=== PATIENT | female | born 1950 | race Caucasian/White ===

== ENCOUNTER → 2017-10-18 03:11 | Outpatient (CLI) | payer MEDICARE, SELFPAY ==
[2017-10-18 11:50] LABS: Abs Immature Grans 0.01 k/cumm (0.0-0.09); Absolute Basophil Count 0.03 k/cumm (0.0-0.2); Absolute Eosinophil Count 0.14 k/cumm (0.0-0.7); Absolute Lymphocyte Count 2.06 k/cumm (1.2-3.4); Absolute Neutrophil Count 4.08 k/cumm (1.2-6.7); Basophils % 0.4; HCT 43.4 % (36.0-46.0); HGB 15.2 g/dL (12.0-15.5); Immature Grans % 0.1; Lymphocytes % 29.3; Mean Corpuscular Hemoglobin 35.7 pg (27.0-33.0); Mean Corpuscular Volume 101.9 fL (80-95); Mean Platelet Volume 9.6 fL (8.0-11.0); Neutrophils % 58.2; Platelet Count 273 x1000/uL (130-400); RBC 4.26 m/cumm (4.00-5.20); RBC Distribution Width 13.1 % (11.7-14.6); White Blood Cell Count 7.02 k/cumm (4.4-10.8)
[2017-10-18 12:01] LABS: ALT 31 U/L (12-78); AST 17 U/L (15-37); Albumin 3.7 g/dL (3.4-5.0); Alkaline Phosphatase 85 U/L (46-116); Anion Gap 6.6 mmol/L (3-11); BUN 19 mg/dL (7-18); Bilirubin, Total 0.5 mg/dL (0.2-1.0); CO2 30.4 mmol/L (21.0-32.0); CREATININE 0.93 mg/dL (0.55-1.02); Calcium 9.1 mg/dL (8.5-10.1); Chloride 104 mmol/L (98-107); Glucose 104 mg/dL (70-100); LDH 187 U/L (81-234); Potassium 3.6 mmol/L (3.5-5.1); Sodium 141 mmol/L (136-145); Total Protein 6.9 g/dL (6.4-8.2)
== END ==
PROVIDERS: Visit Provider Internal Medicine Hematology & Oncology
DX: C85.80 Other specified types of non-Hodgkin lymphoma, unspecified site (principal)
CPT/HCPCS: 36415; 80053; 83615; 85025

== ENCOUNTER 2018-09-05 10:18 | Outpatient (REF) | payer MEDICARE, SELFPAY ==
[2018-09-05 13:40] LABS: HCT 45.8 % (36.0-46.0); HGB 15.8 g/dL (12.0-15.5); Mean Corp. HGB Concentration 34.5 g/dL (32.0-36.0); Mean Corpuscular Volume 101.3 fL (80-95); Mean Platelet Volume 10.1 fL (8.0-11.0); Platelet Count 288 x1000/uL (130-400); RBC 4.52 m/cumm (4.00-5.20); RBC Distribution Width 13.5 % (11.7-14.6)
[2018-09-05 14:24] LABS: BUN 19 mg/dL (7-18); CREATININE 0.89 mg/dL (0.55-1.02); Calcium 8.9 mg/dL (8.5-10.1); Chloride 103 mmol/L (98-107); Glucose 150 mg/dL (70-100); Magnesium 1.7 mg/dL (1.8-2.4); Potassium 4.2 mmol/L (3.5-5.1); Sodium 142 mmol/L (136-145); Vitamin B12 491 pg/mL (193-986)
== END 2018-09-05 10:38 ==
LOC: NCHCN 10:18
PROVIDERS: PCP Nurse Practitioner Family; Visit Provider Nurse Practitioner Family
DX: K21.9 Gastro-esophageal reflux disease without esophagitis (principal); M79.10 Myalgia, unspecified site; C85.90 Non-Hodgkin lymphoma, unspecified, unspecified site
CPT/HCPCS: 80048; 85027; 82607; 83735

== ENCOUNTER 2018-09-18 00:48 | Outpatient (CLI) | payer MEDICARE, SELFPAY ==
--- NOTE | 2018-09-18 11:11 | DI.MAMMO_ITS ---
SYMPTOM/DIAGNOSIS: SCREENING, Z12.31 MAMMOGRAMS: Mammograms were interpreted according to the usual protocol including computer analysis with CAD system, tomosynthesis and C view imaging. Comparison is with the prior examinations. No suspicious masses or microcalcifications are seen. There is no definite evidence of malignancy. IMPRESSION: Negative mammogram. Routine screening is recommended. Category 1, breast density A. MQSA ASSESSMENT OF FINDINGS: Negative. Category 1. Patient will receive a letter notifying them of these results. BI-RAD category A. The breasts are almost entirely fatty.
== END 2018-09-18 01:08 ==
PROVIDERS: PCP Nurse Practitioner Family; Visit Provider Nurse Practitioner Family
DX: Z12.31 Encounter for screening mammogram for malignant neoplasm of breast (principal)
CPT/HCPCS: 77063; 77067

== ENCOUNTER 2018-09-26 10:52 | Outpatient (CLI) | payer MEDICARE, SELFPAY ==
--- NOTE | 2018-09-26 10:47 | DI.RAD_ITS ---
SYMPTOM/DIAGNOSIS: RT KNEE PAIN RIGHT KNEE: There is severe narrowing of the medial femoral tibial joint, with a bone on bone appearance. There is some lateral subluxation of the tibia with respect to the femur. There is prominent periarticular spurring of both medial and lateral femoral tibial joints as well as patellofemoral joint. IMPRESSION: Severe degenerative changes of the medial femoral tibial joint and patellofemoral joint.
== END 2018-09-26 11:12 ==
PROVIDERS: PCP Nurse Practitioner Family; Referring Provider Nurse Practitioner Family; Visit Provider Student in an Organized Health Care Education/Training Program
DX: M25.561 Pain in right knee (principal); M17.11 Unilateral primary osteoarthritis, right knee; Z85.79 Personal history of other malignant neoplasms of lymphoid, hematopoietic and related tissues; M70.62 Trochanteric bursitis, left hip; E11.9 Type 2 diabetes mellitus without complications
CPT/HCPCS: 20610; 73562; 99202; 99203; J1040

== ENCOUNTER → 2018-11-08 10:16 | Outpatient (BNVA) | payer MEDICARE, SELFPAY | PROVIDERS: PCP Nurse Practitioner Family; Referring Provider Nurse Practitioner Family; Visit Provider Student in an Organized Health Care Education/Training Program | DX: M25.561 Pain in right knee (principal); M17.11 Unilateral primary osteoarthritis, right knee; Z98.890 Other specified postprocedural states | CPT/HCPCS: 99213 ==

== ENCOUNTER 2019-03-11 09:54 | Outpatient (REF) | payer MEDICARE, SELFPAY ==
[2019-03-11 13:48] LABS: ALT 24 U/L (14-59); AST 11 U/L (15-37); Anion Gap 8.6 mmol/L (3-11); BUN 20 mg/dL (7-18); CO2 30.4 mmol/L (21.0-32.0); CREATININE 0.88 mg/dL (0.55-1.02); Calcium 9.1 mg/dL (8.5-10.1); Calculated LDL 64 mg/dL; Chloride 105 mmol/L (98-107); Cholesterol 124 mg/dL (<200); Glucose 202 mg/dL (74-106); HDL Cholesterol 44 mg/dL (40-60); Magnesium 1.7 mg/dL (1.8-2.4); Potassium 4.8 mmol/L (3.5-5.1); Sodium 144 mmol/L (136-145); Triglyceride 84 mg/dL (<150)
== END 2019-03-11 10:14 ==
LOC: NCHCN 09:54
PROVIDERS: PCP Nurse Practitioner Family; Visit Provider Nurse Practitioner Family
DX: E11.9 Type 2 diabetes mellitus without complications (principal); E83.42 Hypomagnesemia
CPT/HCPCS: 80048; 80061; 83735; 84450; 84460

== ENCOUNTER → 2019-03-11 10:00 | Outpatient (BNVA) | payer MEDICARE, SELFPAY | PROVIDERS: PCP Nurse Practitioner Family; Referring Provider Nurse Practitioner Family; Visit Provider Student in an Organized Health Care Education/Training Program | DX: M17.11 Unilateral primary osteoarthritis, right knee (principal); I10 Essential (primary) hypertension | CPT/HCPCS: 20610; 99213; J7318 ==

== ENCOUNTER 2019-04-26 10:48 | Outpatient (CLI) | payer MEDICARE, SELFPAY ==
--- NOTE | 2019-04-26 10:30 | DI.RAD_ITS ---
EXAM: XR STANDING ALIGNMENT INDICATION: R knee OA. COMPARISON: No exams were available for comparison TECHNIQUE: 2D digital imaging was performed. FINDINGS: The exam is limited by the patient's body habitus. The hip joint spaces are not well seen. The left femoral head projects superior to the right by 8 millimeters. There are severe degenerative changes of both knees, right greater than left. There is narrowing of both ankle joints. Bilateral varus an gulation. IMPRESSION: Severe degenerative change of the knees, right greater than left. Mild leg length discrepancy. DATA REPOSITORY: RADIATION DOSE DELIVERED:
== END 2019-04-26 11:08 ==
PROVIDERS: PCP Nurse Practitioner Family; Referring Provider Nurse Practitioner Family; Visit Provider Student in an Organized Health Care Education/Training Program
DX: M17.12 Unilateral primary osteoarthritis, left knee (principal); M21.70 Unequal limb length (acquired), unspecified site; M17.11 Unilateral primary osteoarthritis, right knee; Z98.890 Other specified postprocedural states
CPT/HCPCS: 99213; 77073

== ENCOUNTER 2019-07-19 01:55 | Outpatient (CLI) | payer MEDICARE, SELFPAY ==
[2019-07-19 13:02] LABS: HCT 44.7 % (36.0-46.0); HGB 14.9 g/dL (12.0-15.5); Mean Corp. HGB Concentration 33.3 g/dL (32.0-36.0); Mean Corpuscular Hemoglobin 34.7 pg (27.0-33.0); Mean Platelet Volume 9.5 fL (8.0-11.0); Platelet Count 331 x1000/uL (130-400); RBC Distribution Width 13.2 % (11.7-14.6); White Blood Cell Count 7.48 k/cumm (4.4-10.8)
[2019-07-19 13:44] LABS: Hemoglobin A1C 6.3 % (3.8-5.6)
[2019-07-19 13:45] LABS: Anion Gap 8.7 mmol/L (3-11); BUN 18 mg/dL (7-18); CO2 28.3 mmol/L (21.0-32.0); CREATININE 0.93 mg/dL (0.55-1.02); Calcium 9.4 mg/dL (8.5-10.1); Chloride 104 mmol/L (98-107); Estimated GFR 59.78 (mL/min/1.73m2); Glucose 93 mg/dL (74-106); Sodium 141 mmol/L (136-145)
[2019-07-20 23:54] LABS: COVID-19 RT-PCR Result NEGATIVE (Negative)
== END 2019-07-19 02:15 ==
PROVIDERS: PCP Nurse Practitioner Family; Visit Provider Student in an Organized Health Care Education/Training Program
DX: M25.561 Pain in right knee (principal); M17.11 Unilateral primary osteoarthritis, right knee; R73.9 Hyperglycemia, unspecified; Z11.59 Encounter for screening for other viral diseases; Z01.818 Encounter for other preprocedural examination; Z01.812 Encounter for preprocedural laboratory examination
CPT/HCPCS: 36415; 80048; 85027; U0003; 83036

== ENCOUNTER 2019-07-19 08:48 | Outpatient (CLI) | payer MEDICARE, SELFPAY | END 2019-07-19 09:08 | PROVIDERS: PCP Nurse Practitioner Family; Visit Provider Student in an Organized Health Care Education/Training Program | DX: M17.11 Unilateral primary osteoarthritis, right knee (principal); Z01.818 Encounter for other preprocedural examination ==

== ENCOUNTER 2019-07-24 06:02 | Observation (INO) | payer MEDICARE, SELFPAY ==
[2019-07-24] VITALS (11 sets, daily range): BP systolic 94–155; BP diastolic 36–90; PULSE 58–70; RESP 8–22; TEMP 35.9–36.7; O2SAT 93–98
[2019-07-24] MEDS: Lactated Ringers 1,000 ML 80 ML IV (06:55)
[2019-07-24] MEDS: Gabapentin 300 MG CAP PO (07:07)
[2019-07-24] MEDS: Acetaminophen 500 MG TAB 1000 MG PO ×2 (07:07→13:41)
[2019-07-24] MEDS: Celecoxib 200 MG CAP 400 MG PO (07:08)
[2019-07-24] MEDS: ceFAZolin 3,000 MG in Normal Saline 100 ML 200 MG IVPB (07:40)
[2019-07-24] MEDS: Normal Saline 20 ML VIAL (08:13)
[2019-07-24] MEDS: Bupivacaine 0.25% Pres-Free 30 ML VIAL (08:13)
[2019-07-24] MEDS: Ketorolac 30 MG/ML VIAL (08:13)
--- NOTE | 2019-07-24 10:57 | IN_ITS ---
Date of service: 07/24/19 PT Notes Visit Reasons: (R) KNEE TOTAL Physical Therapy Inpatient Initial Evaluation Date: 07/24/2019 Referring Doctor: Patricio Eldridge MD PT Orders: PT CONSULT: Status post Ortho surgery. Status post right TKA Precautions: Fall. Standard. WBAT on R LE. Patient Profile/Admitting Diagnosis: Mary Ann is a 68-year-old female patient with degenerative joint disease of the right knee status post right total knee arthroplasty on postoperative day 0. PMHX: Medical History Anxiety (Active) Benign hypertension (Active) Cholelithiasis without obstruction (Active) Diabetes (Chronic) Febrile neutropenia (Active 07/21/12) History of lymphoma (Acute) Treated with Chemotherapy Completed treatment in 2012 Malignant lymphoma (Active 06/23/12) B-cell lymphoma Morbid obesity (Active) Surgical History Acute cholecystitis (Active 08/10/12) Laparoscopic cholecystectomy with intraopertive chgolangiogram 08/10/[address] Javan Tiwari Social History/Home Situation: Mary Ann lives alone in a 2-floor house with three steps leading onto a landing and then another two steps to get into house. The first set of stairs have rails but she states she can pull from the door frame to get over the other two steps. She does not use the second floor of the house as she has everything she needs on the main floor. She has a daughter who has been taking care of her grocery shopping since the COVID outbreak. She is otherwise indepednent with everything prior to surgery. Equipment Owned/DME: [facility], [facility] Subjective: Patient reports mildy lightheaded but was confident that she would do good with therapy. She denies headache and chest pain throughout PT session. She indicated that the back of her knee was tight and reported 6/10 pain on the R knee at end of ambulation activity. She stressed that prior to surgery she had been anxious about bending her knee too much as it causes severe pain. Today, she is happy that she is able to bend the right knee more without undue pain in that she feels a lot more stable than before. Objective: General Observation: Obese. DAISY wraps to R knee. MANE to L leg. A ntithromboembolic pump to L leg. IV in R UE. Mental Status: Alert and oriented x 4 Pain: 6/10 pain on the right knee after ambulation activity Vital Signs: Within normal limits as monitored before and after PT session by nursing staff ROM: Right Upper Extremity: Shoulder Flexion WFL. Shoulder abduction WFL. Elbow flexion WFL. Wrist flexion WFL. Opening and closing of hand WFL. Left Upper Extremity: Shoulder Flexion WFL. Shoulder abduction WFL. Elbow flexion WFL. Wrist flexion WFL. Opening and closing of hand WFL. Right Lower Extremity: Hip flexion WFL. Hip abduction WFL. Knee flexion -15 to 90 degrees. Knee extension -15 degrees. Ankle dorsiflexion WFL. Ankle plantarflexion WFL. Left Lower Extremity: Hip flexion WFL. Hip abduction WFL. Knee flexion WFL. Ankle dorsiflexion WFL. Ankle plantarflexion WFL. Strength: Right Upper Extremity: Shoulder flexors 5/5. Shoulder abductors 5/5. Elbow flexors 5/5. Elbow extensors 5/5. [employer] strong. Left Upper Extremity: Shoulder flexors 5/5. Shoulder abductors 5/5. Elbow flexors 5/5. Elbow extensors 5/5. [employer] strong. Right Lower Extremity: Hip flexors 5/5. Hip abductors 5/5. Knee flexors 3-/5. Knee extensors 3-/5. Ankle dorsiflexors 5/5. Ankle plantarflexors 5/5. Left Lower Extremity:Hip flexors 5/5. Hip abductors 5/5. Knee flexors 5/5. Knee extensors 5/5. Ankle dorsiflexors 5/5. Ankle plantarflexors 5/5. Sensation: Intact as to pain and pressure on bilateral lower extremities. Bed Mobility/Transfers: Rolling modified independent using BUE for support Supine to sit modified independent using BUE for support Sit to supine modified independent using BUE for support Sit to stand modified independent using BUE for support, minimal verbal cueing for hand placement, needs front wheeled walker Stand to sit modified independent using BUE for support, minimal verbal cueing for hand placement Bed to chair modified independent using BUE for support, minimal verbal cueing for hand placement, needs front wheeled walker Chair to bed modified independent using BUE for support, minimal verbal cueing for hand placement, needs front wheeled walker Gait: Patient tolerated level surface ambulation of 150 feet 260 feet using front wheeled walker with WBAT on the right LE requiring standby assist and minimal verbal cueing for walker management and gait pattern. Patient demonstrates typical swing through gait pattern. Reports 6/10 pain on on the right knee. Patient is now able to bend right knee more during swing phase which she was not able to do prior to surgery. Balance: Static Sitting: Normal Dynamic Sitting: Normal Static Standing: Fair Dynamic Standing: Fair Special Tests: Mobility Limitations Standardized [employer] AM-PAC 6 clicks Basic Mobility Inpatient Short Form: Raw Score: 21 CMS Score: 29% deficit Informed Consent/Education: Patient instructed in purpose of PT consult and plan of care. Assessment: Patient demonstrates the need for a front wheel walker for all mobility ADL performance, impairment in balance, difficulty with walking and tolerable pain on the right knee due to postoperative status. Patient presents with clinical signs and symptoms consistent with current/admitting diagnoses that have resulted to mobility limitations, gait instability, generalized weakness, and impairment of motor control as demonstrated by the following impairment level findings: 1. Decreased strength to right knee flexors and extensors 2. Impaired standing balance 3. Impaired activity tolerance 4. Limitation of joint range of motion in right knee Impairments are contributing to the following functional limitations: 1. Inability to safely ambulate without assistive device and physical assistance 2. Increase completion time for mobility ADL performance 3. Increased fall risk 4. Inability to negotiate steps alone safely Patient is assessed as a 56552 moderate complexity based on the following: History: 68-year-old female with impairment level findings, functional limitations, and past medical history as listed above Examination: Demonstrable impairment in strength, balance, and range of motion with underlying impairments and functional limitations as documented above Presentation:Evolving Decision Makin moderate complexity Goals: Goals X 3 day 1. Supine-Sit independent 2. Sit-Supine independent 3. Sit-Stand independent 4. Stand-Sit independent 5. Bed-Chair independent 6. Chair-Bed independent 7. Independent gait on level surface with use of least restrictive device for at least 300 feet without report of pain nor dyspnea 8. Independent stair negotiation while holding onto bilateral rails for at least 5 steps without report of pain nor dyspnea 9. Independent with home exercise program 10. Good static and dynamic standing balance/tolerance Plan of Care/Treatment Plan: 1-2x/day x 3 days. Plan of care has been reviewed with the C[employer] MANAGEMENT ASSOCIATE providing the service under Physical Therapy direction. Initiate Physical Therapy intervention for strengthening, bed mobility, transfers, gait, stairs, balance training, use of assistive device. DISCHARGE RECOMMENDATIONS: Home when medically cleared by orthopedic surgeon. No equipment needs at this time. TREATMENT CODE/TIME: 9716 2 x 30 minutes, 9753 0 x 13 minutes beginning at 10:57 AM. Thank you very much for this referral. Eufemia Plata PT, DPT, CLT [facility] [place], [place]
--- NOTE | 2019-07-24 11:01 | ROE_ITS ---
Date of service: 07/24/19 Time of Service: 10:01 Operative Note Operative Note DATE OF PROCEDURE: 07/24/19 PRE-OP DIAGNOSIS: Right Knee Osteoarthritis POST-OP DIAGNOSIS: same PROCEDURE: Right Total Knee Replacement SURGEON: Patricio Eldridge ELECTRICAL DESIGN TECHNICIAN: Antionette Bunn ANESTHESIA: regional and spinal ESTIMATED BLOOD LOSS: 200 PATHOLOGY: none sent TOURNIQUET TIME: 34 COMPLICATIONS: None Patient was transported to: PACU Patient's condition: stable Implants: 1. Depuy Attune Cruciate Retaining Femoral Component, Size 5 Narrow 2. Depuy Attune Rotating Platform Tibial Component, Size 4 3. Depuy Attune 5x6 CR,RP Poly 4. Depuy Attune Patellar Component, Size 35 Indications: I have seen Mary Ann in clinic for symptoms of knee arthritis, confirmed with radiographic findings. Mary Ann has exhausted nonoperative methods and was having significant limitations in daily function and desired better function and less pain. I discussed the technical details of a knee replacement. I explained the risks of the procedure to include, but not limited to, bleeding, infection, pain, stiffness, fracture, damage to nerves and vessels, damage to muscles and tendons, loosening, need for repeat procedure, blood clot and cardiopulmonary demise. Despite these risks, she elected to proceed. Findings: There was significant signs of arthritis throughout the knee. There was a large depressed deformity of the lateral femur and ebunation of the medial tibia. Procedure Description: Mary Ann was greeted in the preoperative holding area where the correct side was identified and marked. The consent was reviewed with the patient and signed. The history and physical was updated. All questions were answered. Preoperative mediacations were administered: Acetaminophen 1000mg, Celebrex 400mg, and Gabapentin 300mg. An adductor canal block was then administered by the anesthesia team in the PACU. Mary Ann was taken back to the operating room. A spinal anesthestic was then administered. The patient was placed into the supine position on the operating room table. A nonsterile tourniquet was placed high onto the leg but only used for cementing. Posts were placed for positioning during the procedu re. All bony prominences were well padded. Prophylactic antibiotics in the form of Cefazolin were administered. 1g of Tranxemic Acid was given intravenously within 30 minutes of incision. The right leg was then prepped with Chloraprep and draped in a standard fashion with impervious stockinette and extremity drape. A second prep with Chloraprep was performed prior to placing Ioband. A timeout to confirm correct identity, side and site, procedure, allergies, anesthesia, and medical concerns was performed. With the knee in some flexion, a midline incision was made overlying the knee. Full thickness skin flaps were raised once the extensor mechanism was encountered. These were raised medially and laterally. Any bleeding was controlled with electrocautery. Once the extensor mechanism was fully exposed, a medial parapatellar arthrotomy was performed in a flexed position. All bleeding from the arthrotomy and the geniculate arteries was coagulated. A medial subperiosteal peel was performed with electrocautery to the midcoronal plane. Due to the significant varus deformity the entire medial tibial plateau was exposed. The fat pad was removed while keeping the patellar tendon protected. The anterior distal femur synovium was removed for later visualization. The ACL and PCL were resected and the anterior horn of the lateral meniscus was transected. The knee was then flexed with the patella everted. Large osteophytes from the tibia were removed. Large osteophytes from the femur were removed. There was a large depressed deformity of the lateral femur which was unexpected. Using a step drill, and based on preoperative templating, the femoral canal was entered. This was done with a step drill without any difficulty. The intramedullary distal femoral cut guide was inserted, set to a 5 degree valgus cut and 9mm cut thickness. There was some hypoplasia of the lateral femoral condyle and any remnant cartilage of the medial femoral condyle was removed for appropriate thickness. The distal femoral cut guide was then held in position and pinned. With the soft tissues protected, the distal cut was performed. This was passed over a few times to ensure a planar cut. I then turned attention to the tibia. The extramedullary guide was placed onto the leg. The distal aspect was slid medial to adjust for position of center of ankle and stay in line with shaft of the tibia. Approximately 5-7 degrees of posterior slope was kept in the proximal cutting guide. The center of the guide was aligned with the PCL. The stylus was used to assess cut thickness. The medial side, most involved side, was set for a 4mm cut, corresponding to 8mm on the lateral side. This was then held in position and pinned into place with 2 additional pins and a cross pin for stability. The medial and lateral collateral ligaments were protected and the cut was performed. With this completed, it was assessed and noted to be of appropriate dimensions. The guide was removed. A spacer block was inserted and the knee was brought into extension. The 6mm spacer block provided full extension, without hyperextension and with stability of both the medial and lateral collateral ligaments was assessed. The pins from the femur and the tibia were then removed. The distal femur was then sized. The anterior stylus was placed onto the lateral ridge of the anterior femur. This indicated a size 5 narrow femur. The external rotation of the guide was adjusted to 3 degrees to match the epicondylar axis, perpendicular to Sawyer?s line. The 4-in-1 cutting guide was the placed. The posterior medial femur cut was evaluated and appeared of good thickness. The spacer block was inserted underneath the cutting guide and stability was confirmed in 90 degrees of flexion. An lyric wing was used to confirm appropriate position of the anterior cut to avoid notching. This cutting guide was ensured to be flush on the cut surface and then pinned into place with headed pins. While protecting the soft tissues, quad tendon, and collateral ligaments, the anterior and posterior cuts were performed with a saw. The central two pins were removed and the posterior and anterior chamfers were cut next. The notch-cutting guide was placed. This was pinned to lateralize the femoral component as much as possible while keeping it flush on the cut surface. This was then pinned into position. A reciprocating saw was used to make the small notch cut. A trial CR femoral component was then inserted, impacted down to the cut surfaces, and the lug holes were drilled. A provisional trial tibial component was placed and the knee was brought through range of motion. There was noted to be excellent extension and flexion. There was no significant instability. The patella was tracking without thumbs. The tibial cut surface was fully exposed. The medial and lateral menisci were removed. The tibia was then sized as a 4. The tibia had been previously marked during trialing to correspond to the center of the tibial component to help with rotation. The trial was aligned to this antionette, approximately rotated to the medial 1/3rd of the tibial tubercle. The trial was pinned into place. The tibia was prepared with a reamer and a keel punch. The knee was then brought into extension and the patella was measured as 25mm. Using the patellar clamp and cut guide, this was resected to a flat surface with at least 13mm of thickness remaining. The size 35 patella fit the best. This was oriented and then clamped into position. The lugs were drilled. The trial components were removed. The final components, except for the polyethylene were opened on the back table. The periosteal and capsular tissues, especially posteriorly, around the knee were then systematically injected with a periarticular cocktail consisting of 50cc 0.25% Marcaine, 30mg Ketorolac, 20cc of Exparal and 50cc of injectable saline. The tourniquet was then inflated to 275mmHg. The knee was thoroughly irrigated with a pulse lavage and dried. On the back table, with the implants opened, the cement was mixed. 2 batches of antibiotic laden cement were prepared with vacuum assistance. After the cement was ready it was placed on to the back side of the tibial component. A small amount was placed onto the posterior flange of the femur. Cement was manual pressurized and impregnated into the cut surface of the tibia. The tibial component was then inserted into the cut surface and impacted into position. Excess cement was removed and the component was reimpacted. Again, excess cement was removed and our attention was then turned to the femur. The femoral cut surface was once again dried and cement was manually impacted into the cut surface. The femoral component was lined with the lug holes and impacted. Excess cement was removed. It was ensured to be down against the cut surface. The trial polyethylene was then inserted and the leg was brought out into full extension for the duration of the cement curing process, approximately 15min. Cement was lastly manually impacted into the cut surface of the patella and the patellar button was clamped into position and held. During this process attention was turned to the gutters of the knee and for all interfaces for any excess cement. While the cement was hardening, the knee was irrigated with Irrisept chlorhexadine solution. It was allowed to sit in the knee for 3 minutes. After the cement had finally cured, approximately 15min, the clamp was removed from the patella and the knee was taken through range of motion. A size 6mm polyethylene component provided the best range of motion and stability with less than 2mm gapping with medial and lateral stress and full extension without significant hyperextension. The patella was tracking with a no-thumbs technique. The trial poly was removed and once again the knee was checked for any loose, excess, or errant cement. The poly component was then inserted into position after cleaning and drying the tibial tray. The capsule was then reapproximated with a No. 1 Vicryl at multiple locations. The capsule was finally closed with a No. 2 Stratafix, barbed suture. The tourniquet was then released and the arthrotomy appeared watertight without significant bleeding. The second dosing of 1g TXA was started. Deep tissues were then reapproximated with 0 Vicryl and 2-0 Vicryl. The skin was closed with a running 3-0 Monocryl in a subcuticular fashion. This was reinforced with skin glue. A Mepilex silver dressing was applied along with a [id number] DAISY wrap. A CryoCuff was applied. Mary Ann was transferred to the hospital bed without difficulty an suffering no apparent complication. Mary Ann has a good prognosis. Physical therapy will start today and without restrictions, weight-bearing as tolerated. Aspirin 81mg BID will be used for DVT prophylaxis.
--- NOTE | 2019-07-24 11:27 | NUR.NOTE ---
Nursing Note: PT transferred in her bed from PACU to floor, Room 207 per RN's x2. Alert, responsive. Denies pain. CSMT+ to RLE. Long wrap dry and intact to RLE. Cryocuff in place. Oriented to room. PT arrived in room.
[2019-07-24] MEDS: oxyCODONE 5 MG TAB PO (11:48)
--- NOTE | 2019-07-24 12:13 | NUR.NOTE ---
Called and spoke to Sarah mane per pt request. Updated surgery is finished and successful. Up in chair with Pt help. Pain pill given. PT working with pt this afternoon with stairs. To call daughter back when going home or if staying overnight. Goal is to go home today. Nursing Note:
--- NOTE | 2019-07-24 13:06 | INDS_ITS ---
Date of service: 07/24/19 Time of Service: 13:06 PT Notes Visit Reasons: (R) KNEE TOTAL Inpatient Physical Therapy Discharge Summary Dates: 07/24/2019 Dates of Service: 07/24/2019 only Referring Doctor: Patriico Eldridge MD PT Orders: PT CONSULT: Status post Ortho surgery. Status post right TKA Precautions: Fall. Standard. WBAT on R LE. Patient Profile/Admitting Diagnosis: Mary Ann is a 68-year-old female patient with degenerative joint disease of the right knee status post right total knee arthroplasty on postoperative day 0. PMHX: Medical History Anxiety (Active) Benign hypertension (Active) Cholelithiasis without obstruction (Active) Diabetes (Chronic) Febrile neutropenia (Active 07/21/12) History of lymphoma (Acute) Treated with Chemotherapy Completed treatment in 2012 Malignant lymphoma (Active 06/23/12) B-cell lymphoma Morbid obesity (Active) Surgical History Acute cholecystitis (Active 08/10/12) Laparoscopic cholecystectomy with intraopertive chgolangiogram 08/10/[address] Javan Tiwari Social History/Home Situation: Mary Ann lives alone in a 2-floor house with three steps leading onto a landing and then another two steps to get into house. The first set of stairs have rails but she states she can pull from the door frame to get over the other two steps. She does not use the second floor of the house as she has everything she needs on the main floor. She has a daughter who has been taking care of her grocery shopping since the COVID outbreak. She is otherwise indepednent with everything prior to surgery. Equipment Owned/DME: FWW, SPC Subjective: Patient expresses how confident she is to go home today as she states has adequate supports at home. With the use of her front-wheeled walker she feels safe to navigate indoor distances. Reports 3/10 pain in the R knee. Objective: General Observation: Obese. DAISY wraps to R knee. MANE to L leg. Antithromboembolic pump to L leg. IV in R UE. Mental Status: Alert and oriented x 4 Pain: 3/10 pain in the right knee ROM: Right Upper Extremity: Shoulder Flexion WFL. Shoulder abduction WFL. Elbow flexion WFL. Wrist flexion WFL. Opening and closing of hand WFL. Left Upper Extremity: Shoulder Flexion WFL. Shoulder abduction WFL. Elbow flexion WFL. Wrist flexion WFL. Opening and closing of hand WFL. Right Lower Extremity: Hip flexion WFL. Hip abduction WFL. Knee flexion -15 to 90 degrees. Knee extension -15 degrees. Ankle dorsiflexion WFL. Ankle plantarflexion WFL. Left Lower Extremity: Hip flexion WFL. Hip abduction WFL. Knee flexion WFL. Ankle dorsiflexion WFL. Ankle plantarflexion WFL. Strength: Right Upper Extremity: Shoulder flexors 5/5. Shoulder abductors 5/5. Elbow flexors 5/5. Elbow extensors 5/5. Director Of Education strong. Left Upper Extremity: Shoulder flexors 5/5. Shoulder abductors 5/5. Elbow flexors 5/5. Elbow extensors 5/5. Director Of Education strong. Right Lower Extremity: Hip flexors 5/5. Hip abductors 5/5. Knee flexors 3-/5. Knee extensors 3-/5. Ankle dorsiflexors 5/5. Ankle plantarflexors 5/5. Left Lower Extremity:Hip flexors 5/5. Hip abductors 5/5. Knee flexors 5/5. Knee extensors 5/5. Ankle dorsiflexors 5/5. Ankle plantarflexors 5/5. Sensation: Intact as to pain and pressure on bilateral lower extremities. Bed Mobility/Transfers: Rolling modified independent using BUE for support Supine to sit modified independent using BUE for support Sit to supine modified independent using BUE for support Sit to stand modified independent using BUE for support, minimal verbal cueing for hand placement, needs front wheeled walker Stand to sit modified independent using BUE for support, minimal verbal cueing for hand placement Bed to chair modified independent using BUE for support, minimal verbal cueing for hand placement, needs front wheeled walker Chair to bed modified independent using BUE for support, minimal verbal cueing for hand placement, needs front wheeled walker Gait: Patient tolerated level surface ambulation of 150 feet to 260 feet using front wheeled walker with WBAT on the right LE requiring standby assist. Patient demonstrates typical swing through gait pattern. Reports 3/10 pain on on the right knee. Patient is now able to bend right knee more during swing phase which she was not able to do prior to surgery. Balance: Static Sitting: Normal Dynamic Sitting: Normal Static Standing: Fair Dynamic Standing: Fair Assessment: Patient demonstrates the need for a front wheel walker for all mobility ADL performance, impairment in balance, difficulty with walking and tolerable pain on the right knee due to postoperative status. Patient tolerated transfer, ambulation, and stair negotiation tasks with use of AD and bilateral rails requiring no physical assistance. She has good safety awareness and demonstrates excellent carryover of functional task performance. Goals: Goals X 3 days 1. Supine-Sit independent MET 2. Sit-Supine independent MET 3. Sit-Stand independent with FWW MET 4. Stand-Sit independent MET 5. Bed-Chair independent with FWW MET 6. Chair-Bed independent with FWW MET 7. Independent gait on level surface with use of FWW for at least 300 feet without report of pain nor dyspnea NOT MET 8. Independent stair negotiation while holding onto bilateral rails for at least 5 steps without report of pain nor dyspnea NOT MET 9. Independent with home exercise program NOT MET 10. Good static and dynamic standing balance/tolerance MET DISCHARGE RECOMMENDATIONS: Home when medically cleared by orthopedic surgeon. No equipment needs at this time. OP PT in 2 weeks. TREATMENT CODE/TIME:96698 x 34 minutes beginning at 13:06 PM. Thank you very much for this referral. Eufemia Plata PT, DPT, CLT [facility] [place], [place]
--- NOTE | 2019-07-24 13:09 | W.PM.DS.N ---
Date of service: 07/24/19 Time of Service: 13:09 DS: Diagnosis Discharge Diagnosis (1) Degenerative joint disease of right knee: Status: Acute Discharge Plan Disposition Patient Disposition: HOME Condition: Good Discharge Details Reason For Visit: (R) KNEE TOTAL Admit Date/Time: 07/24/19 06:02 Admit Provider: Patricio Eldridge Attending Provider: Patricio Eldridge Primary Care Provider: Yanely Shankar Hospital Course Hospital Course: Patient was admitted to the medical/surgical floor following the procedure. The surgery was tolerated well without any notable medical, surgical, or anesthetic complications. Mobilization began postoperatively. Mary Ann was voiding spontaneously. Vitals were stable. Physical therapy worked with the patient and was cleared for discharge home. No acute medical issues. Pain was controlled on oral regimen. Home Meds and New Rx's Prescriptions: New celecoxib 200 mg capsule 200 mg PO BID PRN (Reason: pain) Qty: 60 RF: 1 aspirin 81 mg tablet,delayed release (DR/EC) 81 mg PO BID Qty: 60 RF: 0 acetaminophen 500 mg tablet 1,000 mg PO Q8H PRN (Reason: pain) Qty: 90 RF: 3 gabapentin 300 mg capsule 300 mg PO QHS Qty: 7 RF: 0 oxycodone 5 mg tablet 5 mg PO Q4H Qty: 18 RF: 0 Continued metformin 500 mg tablet 500 mg PO .W/ EVENING MEAL RF: 0 losartan 100 mg tablet 100 mg PO DAILY RF: 0 rosuvastatin 10 mg tablet 10 mg PO HS RF: 0 magnesium chloride 70 mg tablet,delayed release (DR/EC) 140 mg PO DAILY RF: 0 omeprazole [Prilosec] 20 MG capsule,delayed release(DR/EC) 20 mg PO DAILY RF: 0 diazepam 2 MG tablet 1 mg PO Q6H PRN PRNQty: 0 RF: 0 Discharge Instructions Additional Instructions: Dr. Eldridge?s Total Knee Discharge Instructions Activity: The most important activity is to walk. You should try to take short walks a few times a day. It is important that when resting you work on keeping the knee straight. Avoid putting a pillow behind the knee as this will encourage flexion. Work on range of motion exercises as provided by Physical Therapy and the preoperative booklet. - Start outpatient physical therapy within 2 weeks. - You should wear the MANE hose on both legs for 2 weeks. Dressing: Keep the surgical dressing (Mepilex) in place for at least one week. If you went home on the surgical day, you should remove the DAISY wrap on the second day and then apply the MANE hose. The dressing may get wet after 3 days but avoid soaking the dressing. If it gets wet, just lightly pat dry. Most patient prefer to cover with ClingWrap or Saran Wrap to keep the dressing dry. After the first week, the dressing may be removed and replaced with light gauze and tape or nothing. Medications: - You should take Tylenol and anti-inflammatory Celebrex as your primary pain control medications. If the Celebrex is too expensive, you should take 2 Aleve twice a day instead. - You have been prescribed a stronger pain medication Oxycodone for breakthrough pain, take as needed as prescribed. - You should continue Omeprazole to help reduce stomach acid and reflux. - You will be taking Aspirin 81mg twice a day for DVT prevention unless instructed otherwise. - If you have constipation you should take Colace or Miralax (both [id number]). It takes most people 3-4 days to have a bowel movement. Follow-up: 2 weeks. You should also call physical therapy to work on scheduling outpatient therapy sessions which can begin at 2 weeks. If you have any acute concerns or questions, please do not hesitate to contact the office at [phone]. You may contact Dr. Eldridge with any questions after hours through the hospital at [phone] or on his cell phone at [phone]. Referrals: Patricio Eldridge MD [ [facility] STAFF PHYSICIAN] - Activity:: Activity as Tolerated Equipment/Supplies:: No Equipment Needed Diet:: As Tolerated Discharge Orders Discharge Orders: Discharge Order (Routine); Ordered 07/24/19 Ordered By: Patricio Eldridge DS: Summary Status at Discharge Functional status at discharge: uses cane/walker Overall status at discharge: patient is progressing back to baseline Mental Status: mental status grossly normal Speech and Movement: speech and movement normal Mood: congruent mood Affect: normal affect Exam Psych Mental Status: mental status grossly normal Speech and Movement: speech and movement normal Mood: congruent mood Affect: normal affect DS: Data Vitals/I&O Vitals and I&O: Vital Signs Temperature 36.5 C 07/24/19 12:00 Temperature Source Tympanic 07/24/19 12:00 Pulse 58 L 07/24/19 12:00 Pulse Rhythm Regular 07/24/19 11:20 Respiratory Rate 22 07/24/19 12:00 Respiratory Effort 07/24/19 11:20 Respiratory Depth Normal 07/24/19 11:20 Respiratory Pattern Normal 07/24/19 11:20 Blood Pressure 114/68 07/24/19 12:00 Pulse Oximetry 94 L 07/24/19 12:00 Respiratory End-tidal CO2 33 07/24/19 10:24 Oxygen Delivery Method Room Air 07/24/19 12:00 Oxygen Flow Rate 0 07/24/19 12:00 Pain Level 7 07/24/19 12:00 Intake & Output 07/23/19 07/24/19 07/24/19 23:59 11:59 23:59 Intake Total 770 / 1010 240 / 1010 Output Total 150 / 150 Balance 620 / 860 240 / 860 Weight 126.7 kg Intake: IV 720 / 720 Oral 50 / 290 240 / 290 Output: Estimated Blood Loss 150 / 150 Other: Emesis Description None PFSH Medical History Anxiety (Active) Benign hypertension (Active) Cholelithiasis without obstruction (Active) Diabetes (Chronic) Febrile neutropenia (Active 07/21/12) History of lymphoma (Acute) Treated with Chemotherapy Completed treatment in 2012 Malignant lymphoma (Active 06/23/12) B-cell lymphoma Morbid obesity (Active) Surgical History Acute cholecystitis (Active 08/10/12) Laparoscopic cholecystectomy with intraopertive chgolangiogram 08/10/[address] Javan Tiwari. t wiht History of colonoscopy (Chronic) Family History Mother , Complications from diabetes Diabetes Sister No problems noted. Social History Smoking/Tobacco Use Status: Never Drug use: Never Current gender identity: female
[2019-07-24] MEDS: ceFAZolin 1 GM/50 ML BAG IVPB (13:38)
[2019-07-24] MEDS: metFORMIN 500 MG TAB PO (16:54)
== END 2019-07-24 18:12 | disposition home or self-care (01) ==
LOC: PDS 10:20 → MS 10:21
PROVIDERS: Admitting Provider Student in an Organized Health Care Education/Training Program; PCP Nurse Practitioner Family; Visit Provider Student in an Organized Health Care Education/Training Program
PROC: 0SRC0J9 Replacement of Right Knee Joint with Synthetic Substitute, Cemented, Open Approach (ICD-10-PCS; CPT 27447; principal; 2019-07-24 07:45)
DX: M17.11 Unilateral primary osteoarthritis, right knee (principal); M25.561 Pain in right knee; Z96.651 Presence of right artificial knee joint; G89.18 Other acute postprocedural pain; E11.9 Type 2 diabetes mellitus without complications; I10 Essential (primary) hypertension; E66.01 Morbid (severe) obesity due to excess calories; Z68.42 Body mass index [BMI] 45.0-49.9, adult
CPT/HCPCS: 27447; C1776; 76942; 97162; 97530; NC; G0378; J0690; J1885; J2250; J2370; J2405; J3010

== ENCOUNTER 2019-08-09 11:30 | Outpatient (CLI) | payer MEDICARE, SELFPAY ==
--- NOTE | 2019-08-09 11:15 | DI.RAD_ITS ---
EXAM: XR KNEE RT 1V CLINICAL HISTORY: 1ST POST OP. TECHNIQUE: 2D digital imaging was performed. COMPARISON: CR XR knee RT 3V AP,lat,dieter from 09/26/2018 CR XR STANDING ALIGNMENT from 08/09/2019 FINDINGS: There is a total right knee prosthesis. No abnormal bony lucencies are seen. There are degenerative changes of the medial femoral tibial joint of the left knee causing varus angulation. There are deg enerative changes of the ankles with narrowing of the tibiotalar joint spaces. The hip joint spaces are suboptimally visualized due to patient body habitus. There is a slight overall leg length discre pancy, with the left femoral head projecting a few millimeters superior to the right. IMPRESSION: Right knee prosthesis. Advanced degenerative changes of medial femoral tibial joint. DATA REPOSITORY: RADIATION DOSE DELIVERED:
== END 2019-08-09 11:50 ==
PROVIDERS: PCP Nurse Practitioner Family; Referring Provider Nurse Practitioner Family; Visit Provider Student in an Organized Health Care Education/Training Program
DX: Z96.651 Presence of right artificial knee joint (principal); Z47.1 Aftercare following joint replacement surgery; M17.12 Unilateral primary osteoarthritis, left knee; M21.70 Unequal limb length (acquired), unspecified site; E11.9 Type 2 diabetes mellitus without complications
CPT/HCPCS: 73560; 77073

== ENCOUNTER → 2019-09-06 10:28 | Outpatient (BNVA) | payer MEDICARE, SELFPAY | PROVIDERS: PCP Nurse Practitioner Family; Visit Provider Student in an Organized Health Care Education/Training Program | DX: Z96.651 Presence of right artificial knee joint (principal); Z47.1 Aftercare following joint replacement surgery ==

== ENCOUNTER 2019-09-09 07:43 | Outpatient (CLI) | payer MEDICARE, SELFPAY ==
[2019-09-12 02:56] LABS: COVID-19 RT-PCR Result NEGATIVE (Negative)
== END 2019-09-09 08:03 ==
PROVIDERS: PCP Nurse Practitioner Family; Visit Provider Student in an Organized Health Care Education/Training Program
DX: Z96.651 Presence of right artificial knee joint (principal); Z01.818 Encounter for other preprocedural examination
CPT/HCPCS: U0003

== ENCOUNTER 2019-09-12 10:43 | Day surgery (SDC) | payer MEDICARE, SELFPAY ==
[2019-09-12 11:05] VITALS: BP 141/69; PULSE 62; RESP 16; TEMP 35.4; O2SAT 98
[2019-09-12] MEDS: Lactated Ringers 1,000 ML 80 ML IV (11:46)
[2019-09-12] MEDS: Ondansetron 4 MG/2 ML VIAL IVP (12:15)
[2019-09-12] MEDS: Bupivacaine 0.5% Pres-Free 30 ML VIAL (12:31)
--- NOTE | 2019-09-12 12:45 | PDOC.DSDIS_ITS ---
Discharge Plan Disposition Patient Disposition: HOME Condition: Good Discharge Details Reason For Visit: KNEE MANIPULATION Attending Provider: Patricio Eldridge Primary Care Provider: Yanely Shankar Home Meds and New Rx's Prescriptions: Continued losartan 100 mg tablet 100 mg PO DAILY RF: 0 rosuvastatin 10 mg tablet 10 mg PO HS RF: 0 magnesium chloride 70 mg tablet,delayed release (DR/EC) 140 mg PO DAILY RF: 0 cyclobenzaprine 5 mg tablet 5 mg PO TID PRN (Reason: muscle spasm) Qty: 12 RF: 0 omeprazole [Prilosec] 20 MG capsule,delayed release(DR/EC) 20 mg PO DAILY RF: 0 diazepam 2 MG tablet 1 mg PO Q6H PRN PRNQty: 0 RF: 0 celecoxib 200 mg capsule 200 mg PO BID PRN (Reason: pain) Qty: 60 RF: 1 acetaminophen 500 mg tablet 1,000 mg PO Q8H PRN (Reason: pain) Qty: 90 RF: 3 Changed tramadol 50 mg tablet 50 mg PO Q6H PRN PRN (Reason: pain) Qty: 14 RF: 0 Discharge Instructions Additional Instructions: Activity: You should begin moving as soon as possible. You may work on flexion but also equally maintain extension. You may bear weight as tolerated, using crutches only for support/comfort. You should apply ice to help with swelling and elevate when possible (especially in the first few days). You should apply ice to assist with swelling and pain. Medications: - Rarely does this require any stronger pain medications, but it may for the first few days or with PT. Oxycodone has been called in. - Recommend to take up to 1000mg of Acetaminophen (Tylenol) every 8 hours and Celebrex 200mg twice daily as needed. Follow-up: 7-10 days. PT starts tomorrow. Referrals: Patricio Eldridge MD [ [facility] STAFF PHYSICIAN] - Activity:: Activity as Tolerated Remove Dressings/Wound Care:: 24 hours Shower/Bathe:: 24 hours Diet:: As Tolerated Discharge Orders Discharge Orders: Discharge Order (Routine); Ordered 09/12/19 Ordered By: Patricio Eldridge DS: Diagnosis Discharge Diagnosis (1) Arthrofibrosis of total knee replacement: Status: Acute
[2019-09-12 12:52] VITALS: BP 162/75; PULSE 79; RESP 23; TEMP 36.2; O2SAT 98
[2019-09-12 12:57] VITALS: BP 156/55; PULSE 64; RESP 17; TEMP 36.2; O2SAT 98
[2019-09-12 13:02] VITALS: BP 160/57; PULSE 64; RESP 18; TEMP 36.3; O2SAT 98
[2019-09-12 13:17] VITALS: BP 142/64; PULSE 64; RESP 18; TEMP 36.3; O2SAT 95
[2019-09-12 14:24] VITALS: BP 114/61; PULSE 92; RESP 16; TEMP 36.1; O2SAT 92
--- NOTE | 2019-09-17 06:13 | ROE_ITS ---
Date of service: 09/12/19 Time of Service: 13:13 Operative Note Operative Note DATE OF PROCEDURE: 09/12/19 PRE-OP DIAGNOSIS: Right Knee Arthrofibrosis s/p Replacement POST-OP DIAGNOSIS: same PROCEDURE: Right Knee Manipulation Under Anesthesia SURGEON: Patricio Eldridge ANESTHESIA: RED ESTIMATED BLOOD LOSS: 0 PATHOLOGY: none sent TOURNIQUET TIME: 0 COMPLICATIONS: None Patient was transported to: PACU Patient's condition: stable Indications: Mary Ann is a 68 year old female who is s/p knee replacement. Despite diligent work with physical therapy there has been continued stiffness. To assist with mobility, I offered a manipulation under anesthesia. I discussed the risks of the procedure to include bleeding, pain, recurrent stiffness, fracture. Despite these risks, she elects to proceed. Findings: Preoperative flexion = 85 Postoperative flexion = 115 Preoperative extension = 5 Postoperative extension = 5 Procedure Description: The patient is agreed in the preoperative holding area. Identity was confirmed and the correct side was identified and marked. The consent was reviewed the patient and signed. History and physical was updated. Mary Ann was taken back to the operating room. The right side was identified as the correct side. A timeout was performed for safe surgery. A general anesthetic was administered. The knee was then prepped with ChloraPrep and an intra-articular injection of 8 cc of 0.5% bupivacaine was administered. Once a muscle relaxant was fully on board manipulation was performed. Pre- manipulation range of motion was noted. A gentle manipulation was performed first into flexion using a very small lever arm and adding gentle and progressive pressure to the tibia. There is audible and palpable crepitus with improvement in range of motion. This was cycled and repeated multiple times. The leg was then brought into extension and gentle anterior posterior pressure was applied with a supported hand behind the proximal tibia and knee. This was brought back into flexion was once again manipulated with gentle and progressive pressure. Final range of motion numbers were recorded. A Band-Aid was applied to the injection site. She was awake from anesthesia and taken to the PACU in stable condition.
== END 2019-09-12 14:38 | disposition home or self-care (01) ==
PROVIDERS: PCP Nurse Practitioner Family; Visit Provider Student in an Organized Health Care Education/Training Program
PROC: (CPT 27570; principal; 2019-09-12 12:15)
DX: T84.82XA Fibrosis due to internal orthopedic prosthetic devices, implants and grafts, initial encounter (principal); Z96.651 Presence of right artificial knee joint; I10 Essential (primary) hypertension; E11.9 Type 2 diabetes mellitus without complications; E66.01 Morbid (severe) obesity due to excess calories; Z68.42 Body mass index [BMI] 45.0-49.9, adult
CPT/HCPCS: 27570; J0131; J1100; J1885; J2001; J2405

== ENCOUNTER → 2019-10-14 08:46 | Outpatient (BNVA) | payer MEDICARE, SELFPAY | PROVIDERS: PCP Nurse Practitioner Family; Visit Provider Student in an Organized Health Care Education/Training Program | DX: Z47.1 Aftercare following joint replacement surgery (principal); Z96.651 Presence of right artificial knee joint; E11.9 Type 2 diabetes mellitus without complications; I10 Essential (primary) hypertension ==

== ENCOUNTER → 2020-02-20 07:59 | Outpatient (BNVA) | payer MEDICARE, SELFPAY | PROVIDERS: PCP Nurse Practitioner Family; Referring Provider Nurse Practitioner Family; Visit Provider Physical Therapy Assistant | DX: Z12.11 Encounter for screening for malignant neoplasm of colon (principal) ==

== ENCOUNTER 2020-02-25 02:47 | Outpatient (CLI) | payer MEDICARE, SELFPAY ==
[2020-02-26 19:29] LABS: COVID-19 RT-PCR UVMMC Result Negative (Negative)
== END 2020-02-25 03:07 ==
PROVIDERS: PCP Nurse Practitioner Family; Visit Provider Surgery
DX: Z11.59 Encounter for screening for other viral diseases (principal); Z01.818 Encounter for other preprocedural examination
CPT/HCPCS: U0003

== ENCOUNTER 2020-02-28 09:07 | Day surgery (SDC) | payer MEDICARE, SELFPAY ==
[2020-02-28 09:33] VITALS: BP 148/77; PULSE 82; RESP 18; TEMP 36.8; O2SAT 98
[2020-02-28] MEDS: Lactated Ringers 1,000 ML 80 ML IV (09:48)
--- NOTE | 2020-02-28 10:36 | PDOC.DSDIS_ITS ---
Discharge Plan Disposition Patient Disposition: HOME Condition: Good Discharge Details Reason For Visit: colons scope Attending Provider: Barbara Louis Primary Care Provider: Yanely Shankar Home Meds and New Rx's Prescriptions: Continued losartan 100 mg tablet 100 mg PO DAILY RF: 0 rosuvastatin 10 mg tablet 10 mg PO HS RF: 0 magnesium chloride 70 mg tablet,delayed release (DR/EC) 140 mg PO DAILY RF: 0 metformin 500 mg tablet 500 mg PO DAILY RF: 0 metronidazole 0.75 % gel 1 applic topical BID RF: 0 omeprazole [Prilosec] 20 MG capsule,delayed release(DR/EC) 20 mg PO DAILY RF: 0 diazepam 2 MG tablet 1 mg PO Q6H PRN PRNQty: 0 RF: 0 acetaminophen 500 mg tablet 1,000 mg PO Q8H PRN (Reason: pain) Qty: 90 RF: 3 Discontinued polyethylene glycol 3350 17 gram/dose powder 238 g PO ONCE Qty: 238 RF: 0 bisacodyl [Dulcolax (bisacodyl)] 5 mg tablet,delayed release (DR/EC) 5 mg PO ONCE Qty: 4 RF: 0 Discharge Instructions Additional Instructions: Findings:diverticula Follow up: Do not need to repeat colonoscopy unless you are having problems with your bowels, such as: Bleeding that lasts for longer than 2 weeks, unexplained weight loss, pain or difficulty moving your bowels. Please call if you develop: fevers >101.5 Nausea or Vomiting Abdominal pain that is not transient DAY SURGERY UNIT POST COLONOSCOPY INSTRUCTIONS 1. Because there will be medication in your system for the next 24 hours, you may feel a little sleepy. Your coordination will be affected. Therefore: a. Do not drive or operate dangerous equipment for 24 hours. b. Do not drink alcohol beverages for 24 hours (not even beer). c. Plan to go home and rest for the day. 2. Generally there are no restrictions on your activity after a day or so has gone by, but you may feel a bit fatigued for a few days. 3 After you arrive home you may have a light meal and return to a normal diet as you can tolerate it without feeling sick to your stomach. 4. After surgery, you may feel pain or discomfort. This should be only transient, but if it persists please contact your doctor. 5. If there are any questions regarding the findings of your procedure, please feel free to contact your doctor. 6. If you are unable to contact your doctor with a problem, contact the hospital at [phone]. 7. Continue all your regular medications unless directed otherwise. I understand the above instructions and have no questions. Signature of Patient or Responsible Adult Escort Date/Time Name of Responsible Adult Escort Signature of Nurse Date/Time DIVERTICULAR DISEASE OVERVIEW ? A diverticulum is a pouch-like structure that can form through points of weakness in the muscular wall of the colon (ie, at points where blood vessels pass through the wall). Diverticulosis affects men and women equally. The risk of diverticular disease increases with age. It occurs throughout the world but is seen more commonly in developed countries. WHAT IS DIVERTICULAR DISEASE? Diverticulosis ? Diverticulosis merely describes the presence of diverticula. Diverticulosis is often found during a test done for other reasons, such as flexible sigmoidoscopy, colonoscopy, or barium enema. Most people with diverticulosis have no symptoms and will remain symptom free for the rest of their lives. A person with diverticulosis may have diverticulitis, or diverticular bleeding. Diverticulitis ? Inflammation of a diverticulum (diverticulitis) occurs when there is thinning and breakdown of the diverticular wall. This may be caused by increased pressure within the colon or by hardened particles of stool, which can become lodged within the diverticulum. The symptoms of diverticulitis depend upon the degree of inflammation present. The most common symptom is pain in the left lower abdomen. Other symptoms can include nausea and vomiting, constipation, diarrhea, and urinary symptoms such as pain or burning when urinating or the frequent need to urinate. Diverticulitis is divided into simple and complicated forms. ?Simple diverticulitis, which accounts for 75 percent of cases, is not associated with complications and typically responds to medical treatment with out surgery. ?Complicated diverticulitis occurs in 25 percent of cases and usually requires surgery. Complications associated with diverticulitis can include the following: ?Abscess ? a localized collection of pus ?Fistula ? an abnormal tract between two areas that are not normally connected (eg, bowel and bladder) ?Obstruction ? a blockage of the colon ?Peritonitis ? infection involving the space around the abdominal organ ?Sepsis ? overwhelming body-wide infection that can lead to failure of multiple organs Diverticular bleeding ? Diverticular bleeding occurs when a small artery located within a diverticulum is eroded and bleeds into the colon. Diverticular bleeding usually causes painless bleeding from the rectum. In approximately 50 percent of cases, the person will see maroon or bright red blood with bowel movements. Is bleeding with a bowel movement normal? ? It is not normal to see blood in a bowel movement; this can be a sign of several conditions, most of which are not serious (eg, hemorrhoids) but some of which are serious and require immediate treatment. Anyone who sees blood after a bowel movement should consult with their healthcare provider to determine if further testing or evaluation is needed. DIVERTICULOSIS AND DIVERTICULITIS DIAGNOSIS ? Diverticulosis is often found during tests performed for other reasons. ?Barium enema ? This is an x-ray study that uses barium in an enema to view the outline of the lower intestinal tract. This is an older test and has been largely replaced by computed tomography (CT) scan. ?Flexible sigmoidoscopy ? This is an examination of the inside of the sigmoid colon with a thin, flexible tube that contains a camera. ?Colonoscopy ? This is an examination of the inside of the entire colon. ?CT scan ? A CT scan is often used to diagnose diverticulitis and its complications. If diverticulitis (not just diverticulosis) is suspected, the above three tests should not be used because of the risk of perforation. TREATMENT Diverticulosis ? People with diverticulosis who do not have symptoms do not require treatment. However, most clinicians recommend increasing fiber in the diet, which can help to bulk the stools and possibly prevent the development of new diverticula, diverticulitis, or diverticular bleeding. Fiber is not proven to prevent these conditions in all patients but may help to control recurrent episodes in some. Increase fiber ? Fruits and vegetables are a good source of fiber. Fiber content of packaged foods can be calculated by reading the nutrition label. Seeds and nuts ? Patients with diverticular disease have historically been advised to avoid whole pieces of fiber (such as seeds, corn, and nuts) because of concern that these foods could cause an episode of diverticulitis. However, this belief is completely unproven. We do not suggest that patients with diverticulosis avoid seeds, corn, or nuts. Diverticulitis ? Treatment of diverticulitis depends upon how severe your symptoms are. Home treatment ? If you have mild symptoms of diverticulitis (mild abdominal pain, usually left lower abdomen), you can be treated at home with a clear liquid diet and oral antibiotics. However, if you develop one or more of the following signs or symptoms, you should seek immediate medical attention: ?Temperature >100.1?F (38?C) ?Worsening or severe abdominal pain ?An inability to tolerate fluids Hospital treatment ? If you have moderate to severe symptoms, you may be hospitalized for treatment. During this time, you are not allowed to eat or drink; antibiotics and fluids are given into a vein. If you develop an abscess of the colon, you may require drainage of the abscess (usually performed by placing a drainage tube across the abdominal wall) or by surgically opening the affected area. Surgery ? If you develop a generalized infection in the abdomen (peritonitis), you will usually require an emergency operation. A two-part operation may be necessary in some cases. ?The first operation involves removal of the diseased colon and creation of a colostomy. A colostomy is an opening between the colon and the skin, where a bag is attached to collect waste from the intestine. The lower end of the colon is temporarily sewed closed to allow it to heal. ?Approximately three to six months later, a second operation is performed to reconnect the two parts of the colon and close the opening in the skin. You are then able to empty your bowels through the rectum. Sometimes patients require up to a year to recover from the first operation, depending on how sick they were. In non-emergency situations, the diseased area of the colon can be removed and the two ends of the colon can be reconnected in one operation, without the need for a colostomy. Surgery versus medical therapy ? An operation to remove the diseased area of the colon may be necessary if you do not improve with medical therapy. After an episode of uncomplicated diverticulitis, elective surgery is generally not required as the risk of another attack or requiring emergency surgery is low. However, patients with persistent symptoms attributable to diverticulitis, a history of complicated diverticulitis, or a compromised immune system should be evaluated for possible surgery to prevent another attack. In such patients, another attack has been associated with a higher risk of complications or . Of course, the decision will also depend in part upon your other medical conditions and ability to undergo surgery. In many cases, an elective operation can be performed laparoscopically, using small incisions, rather than the typical vertical (up and down) abdominal incision. Laparoscopic surgery usually allows you to recover more quickly and shortens the hospital stay. After diverticulitis resolves ? After an episode of diverticulitis resolves, if you have not had a recent colonoscopy, the entire length of the colon should be evaluated to determine the extent of disease and to rule out the presence of abnormal lesions such as polyps or cancer. Recommended tests include colonoscopy, barium enema and sigmoidoscopy, or CT colonography. Diverticular bleeding ? Most cases of diverticular bleeding resolve on their own. However, some people will need further testing or treatment to stop bleeding, which may include a colonoscopy, angiography (a treatment that blocks off the bleeding artery), bleeding scan, or surgery. DIVERTICULAR DISEASE PROGNOSIS Diverticulosis ? Over time, diverticulosis may cause no problems or it may cause episodes of bleeding and/or diverticulitis. Approximately 15 to 25 percent of people with diverticulosis will develop diverticulitis, while 5 to 15 percent will develop diverticular bleeding. Diverticulitis ? Approximately 85 percent of people with uncomplicated diverticulitis will respond to medical treatment, while approximately 15 percent of patients will need an operation. After successful treatment for a first attack of diverticulitis, one-third of patients will remain asymptomatic, one- third will have episodic cramps without diverticulitis, and one-third will go on to have a second attack of diverticulitis. The prognosis tends to remain similar following a second attack of diverticulitis. Only 10 percent of people remain symptom-free after a second attack. Subsequent attacks tend to be of similar severity, not increasing in severity as previously believed. High Fiber Diet What is Dietary Fiber? All fiber comes from plants, bushes, quoc or trees. Of course, the ones that we eat provide us with fruits, vegetables and grains. There are many different types of fiber but the three that are most important to the health of the body are: Insoluble Fiber This fiber does not dissolve in water, nor is it fermented by the bacteria residing in the colon. Rather, it retains water and in so doing, helps to promote a larger, bulkier and more regular bowel activity. This, in turn, may be important in preventing disorder such as diverticulosis and hemorrhoids, and in sweeping out certain toxins and cancer causing carcinogens. Sources of insoluble fiber are: ? whole grain wheat and other whole grains ? corn bran, including popcorn, unflavored and unsweetened ? nuts and seeds ? potatoes and the skins from most fruits from trees such as apples, bananas and avocados ? many green vegetables such as green beans, zucchini, celery and cauliflower ? some fruit plants such as tomatoes and kiwi Soluble Fiber These fibers are fermented or used by the colon bacteria as a food source or nourishment. When these good bacteria grow and thrive, many health benefits occur in both the colon and the body. Soluble fiber is present in some degree in most edible plant foods, but the ones with the most soluble fiber include: ? legumes such as peas and most beans, including soybeans ? oats, rye and barley ? many fruits such as berries, plums, apples bananas and pears ? certain vegetables such as broccoli and carrots ? most root vegetables ? psyllium husk supplement products Prebiotic Soluble Fiber These are relatively newly discovered soluble plant fibers. The technical name for this fiber is inulin or fructan. When these soluble fibers are fermented by the good colon bacteria, some further significant health benefits have been shown to occur by research in many medical centers. These soluble prebiotic fibers occur in significant amounts in: ? asparagus ? yams ? onions ? garlic ? bananas ? leeks ? agave ? chicory and other root vegetables such as [place] artichokes ? wheat, rye and barley (smaller amounts) Benefits of a High Fiber Diet The health benefits of a high fiber diet, consumed on a regular basis and reaching recommended amounts (below), are now fairly well-defined. There are some additional benefits in the early research stage with the prebiotic soluble fibers. What is now known regarding a high fiber diet include: Bowel Regularity A high fiber diet promotes regularity with a softer, bulkier and regular stool pattern. This decreases the chance of hemorrhoids, diverticulosis and perhaps colon cancer. Cholesterol and Reduced Triglycerides The soluble fibers are the ones that will reduce cholesterol levels when used on a regular basis. Psyllium husk and prebiotic soluble fiber will also reduce cholesterol. They may also reduce the incidence of coronary heart disease. Oats, flax seeds and legumes or beans are the recommended fibers. Colon Polyps and Cancer It is still not certain if a high fiber diet helps prevent colon cancer. Considerable research suggests that this may occur. Certainly it makes sense to increase regularity and so speed the movement of cancer causing carcinogens through the bowel. In addition, reducing a heavy meat diet reduces the bile flow from the liver in a favorable way. This, too, reduces the amount of carcinogens that reach and are manufactured in the colon. Finally, a high fiber diet, including prebiotic soluble fiber, increases the integrity and health of the wall of the colon. The risk of cancer may be reduced. Colon Wall Integrity A high fiber diet changes the bacterial makeup of the colon toward a more favorable balance. For instance, it is known that those people with obesity, diabetes type 2 and inflammatory bowel disease have a predominance of bad bacteria in the colon. This, in turn, may render the bowel wall weak and allow bacteria and, indeed, even toxins to seep through. A high fiber diet with a modest reduction in animal and meat products may return the bacterial makeup to a more positive balance. This, in particular, has been seen when the soluble fiber prebiotics are added to the diet. Blood Sugar Soluble fiber such as in legumes (beans), oats and in prebiotic fibers slows the absorption of blood sugar and so helps regulate the sugar in the blood. Insoluble fiber on a regular basis is associated with reduced risk of type 2 diabetes. Weight Loss High fiber diets are more filling and give a sense of fullness sooner than an animal and meat based diet does. In addition, the soluble prebiotic fibers have been shown to turn off the hunger hormones produced in the wall of the gut and to increase the hormones that give a sense of fullness. Those hormones are made in the wall of the gut. New medical research has shown that the bacterial makeup in the colon in overweight people is abnormal to the extent that they manufacture and absorb almost twice the number of calories through the colon wall as do normals. Prebiotic fibers (below) will help change this hormonal balancein a favorable way. Bacteria and the Function of the Colon The colon finishes the digestive process. Hopefully, the waste products move through in a nice regular manner. Insoluble fibers help this process by retaining water and so producing a bulkier, softer stool, which is easy to pass. The additional role of the colon is to provide a home for an enormous number of micro-organisms, mostly bacteria. Recent research has shown that there are over 1,000 species of bacteria with a total bacterial count ten times the number of cells in the body. These bacteria play a major role in keeping the colon wall itself healthy. In addition, these good bacteria produce a very strong immune system for the body. They significantly increase calcium absorption and bone density. They provide other documented benefits. It is the soluble fibers in the diet that are so effective in stimulating the growth of good colon bacteria. How Much is Enough? The amount of fiber in food is measured in grams. National nutritional authorities recommend the following amounts of dietary fiber daily. Under Age 50 Over Age 50 Men 38 grams 30 grams Women 25 grams 21 grams For a week or so, it is best to tally the amount of fiber you are consuming. Boxed and packaged foods will have the amount of fiber per serving on the nutrition label. Which Fibers and Which Foods are Best? As noted, healthy fiber is only found in plants. The three major categories are whole grains, fruits and vegetables. Whole Grains Wheat, oats, barley, wild or brown rice, amaranth, buckwheat, bulgur, corn, millet, quinoa, rye, sorghum, teff and triticals. By far, wheat, oats and wild o r brown rice are most common. Always buy whole grain products. White bread, baked goods and rolls almost always are made from wheat flour. Wheat flour is white because most of the fiber, vitamins and other nutrients have been removed. Try not buy enriched grains. What this means is that simple white flour has had vitamins added to it by the erp manager. The word, enriched, implies a good and healthy product. On the contrary, enriched means that most of the fiber has been removed and a few vitamins added. Fruits Fruits come from trees such as apple and pear or from bushes or quoc. You should eat a wide variety of fruits, preferably with every meal. In many cases, the skin of a fruit such as apple will contain much of the insoluble fiber while the pulp contains most of the soluble fiber. To the extent possible, buy organic fruits as these will have little or no pesticides. Always wash fruit. Vegetables Eat a wide variety of vegetables. They should be a mainstay of lunch and dinners. Frozen vegetables retain as much nutrition and fiber as fresh vegetables. As with fruit, try to buy organic to reduce any residual pesticide ingestion. Wash fresh vegetables thoroughly. Cruciferous vegetables such as broccoli, [place] sprouts and cauliflower contain certain chemicals such as sulforaphane. This substance has very strong anti-cancer properties and should be eaten frequently. Legumes, Beans, Peas and Soybeans These vegetables have plenty of soluble fiber and should be part of a varied vegetable intake. Beans, in particular, contain a certain type of fiber that may lead to harmless gas or bloating. Nuts and Seeds These are rich sources of fiber and are a good substitute for sweets such as candies and baked sweet goods. While nuts and seeds are rich in fiber, they also contain vegetable fat and so can and do add calories. Read the Labels As noted, fresh and frozen foods are usually better. They have good nutrition and few, if any, chemicals added to them. When buying packaged foods and, in particular grains, look for three things: ? The first word on the label should be whole, such as whole wheat or whole grain. ? Check out the calories and the amount of fiber in a serving. ? How many and what other additives or chemicals are added. Fewer is always better. Do you know what each additive does? Some are added not for the benefit of the tanning wheel filler but rather for manufacturers. These could and do include sugar, artificial flavor, chemicals to prevent oxidation and spoilage, emulsifiers to blend the product. You have to be a stone chimney mason. Fiber Facts, Nuggets and Pearls ? For breakfast you can easily get the day started well by using a high fiber, whole grain cereal. Check the labels. Add fruit such as blueberries and bananas. If you are an egg eater, use whole wheat or grain toast. Adding wheat germ gives you a good fiber kick. ? Always use whole grain or wheat with rolls and sandwiches. Does your fast food store not have them? Perhaps you look elsewhere. Eating an occasional black nguyễn or veggie burger provides variety. ? Snacks should consist of fruit and/or nuts. While nuts are loaded with fiber, they are an energy rich food, meaning they have a lot of calories in a small packet. ? Fruit juices should contain pulp. Clear juices such as clear orange, pear or apple juice contain little fiber and have a lot of fructose. Prune juice is usually high in fiber. ? Homemade soups ? adding fresh or frozen vegetables to a chicken or vegetable stock is a good way to start homemade soup. ? Salads ? adding cooked and then chilled vegetables provide great flavoring to almost any salad. Remember, a chand salad has lots of cooked corn in it. Small slices of apples or oranges and nuts such as chopped walnuts or sliced almonds always adds taste, variety and fiber to almost any salad. ? Fruit ? Try to eat fruit of some type with almost every meal. ? Rethink how you place the various foods on your dinner plate. Reducing the portions of the meat or animal food portion to the side with equal or more portions of vegetables, legumes and fruits portion always allows for more fiber. There was never anything magic about making the meat or animal food portion the main part of the dinner plate. Eating from smaller plates can, over time, trick your mind and [facility] habit of using a dinner plate. Again, there is nothing magic in an 11, 12, or 13 inch dinner plate. Fiber Supplements There are a variety of fiber supplements available on the food or pharmacy shelves. Psyllium This soluble plant fiber has been used in [place] for over 2,000 years. It is a soluble fiber with mucilage in it. This acts to retain a lot of water and also is fermented by colon bacteria. When 7 grams a day are used, it does lower cholesterol. Metamucil in various forms is psyllium. Methyl Cellulose All the cellulose products come from finely ground wood chips which are then treated in a variety of ways such as boiling in acids. Methyl cellulose is an insoluble fiber which does dissolve in water. It is also an emulsifier, meaning it blends oils and water. Citrucel is methyl cellulose (MC). MC may not be appropriate for Crohn?s disease or ulcerative colitis as several medical studies have shown that certain emulsifiers dissolve the mucous lining of the colon in animals prone to Crohn?s disease. This then allows bacteria to invade the underlying tissue. Inulin Inulin is a soluble prebiotic fiber found in many foods and which are fermented mostly in the left side of the colon. It is available in a supplement as generic inulin and in Fiber Choice. Oligofructose FOS These are also prebiotic fibers. They are fermented very quickly in the right side of the colon. Prebiotin This product is a combination of oligofructose, which feeds the bacteria in the right side of the colon and inulin, which does the same in the left side of the colon. There seems to be a benefit for this particular formula based on medical research. Prebiotic Soluble Fiber These may be the healthiest of all the soluble fibers. They grow in many plants and have had a great deal of research done on them in the last 10-15 years. These fibers are found in asparagus, yams and other root vegetables such as chicory, garlic, onion, leeks and in smaller amounts in wheat. This research has shown the following: ? Increase in good and decrease in bad colon bacteria ? Increase calcium absorption and enhanced bone mass ? Enhanced immune system ? Appetite and weight control by changing the hormone appetite signals to the brain ? May decrease colon cancer incidence ? Reduce or correct a leaky colon Eating a wide variety of plant food up to the recommended amount will likely give you enough prebiotic fiber. Supplements such as Prebiotin can be added to the diet. Short Chain Fatty Acids (SCFA) Some rather remarkable research findings have shown that one of the benefits of ingesting a lot of soluble fiber, in particular the prebiotic ones, results in larger amounts of SCFAs in the colon. These SCFAs are made by the good bacteria in the colon such as Bifidobacter and Lactobacillus. These small molecules have been shown to do the following: ? Enhance the health and integrity of the colon wall ? Provide nourishment for the cells that actually line the colon ? Increases the acidity of the colon which is a very real health benefit ? Stabilize blood sugar for diabetics ? Reduce blood cholesterol and triglyceride ? Significantly enhance immunity ? May be a benefit for Crohn?s disease and ulcerative colitis patients Fiber and Gas Everyone has intestinal gas and that is a good thing. It means that bacteria, hopefully the good ones, are thriving. The normal amount of flatus passed each day depends on sex and what is eaten. The normal number of flatus is 10-20 times a day. When the bacteria that make intestinal gases are growing, it also means that other good bacteria are using the same fibers to grow and produce multiple health benefits, including the production of healthy short-chain fatty acids. These substances are produced quietly in the colon and produce many health-related outcomes. Soluble fiber should always be used in a gradual manner. If too much is consumed at any one time, then excess, but harmless, intestinal gas can occur. People with irritable bowel syndrome are particularly prone to bloating and mild cramping. In this instance, soluble fiber in the diet or supplement should be used in small doses and increased gradually. Finally, prebiotic fibers tend to cause the production of short-chain fatty acids which acidify the colon. This, in turn, reduces or stops the growth of bacteria that make the smelly hydrogen sulfide gases that produce noxious flatus. People who consume many vegetables with prebiotics or take a prebiotic fiber supplement often have non-odoriferous flatus. Fiber and Irritable Bowel Syndrome Irritable bowel syndrome (IBS) is one of the most common disorders of the lower digestive tract. The symptoms of IBS can be quite varied. They can be a mix of several symptoms such as constipation, diarrhea, crampy abdominal discomfort, bloating and gas. An attack of IBS can be triggered by emotional tension and anxiety, poor dietary habits and certain medications. It is now known that infections in the intestine can lead to long-term IBS symptoms. Increased amounts of fiber in the diet can help relieve the symptoms of irritable bowel syndrome by producing soft, bulky stools. This helps to normalize the time it takes for the stool to pass through the colon. Recent medical research with newer techniques has shown some surprising and dramatic findings for IBS patients. Specifically, there is a very significant and abnormal shift of bacteria from those that provide health benefits to those bad bacteria that we really do not want in the gut. The technical name for this bad group of bacteria is called Firmicutes. Along with this abnormal bacterial collection, there is a smoldering low-grade inflammation in the gut wall that may contribute to symptoms. The goal for IBS patients should be to gradually increase the soluble dietary fibers in the diet so as to promote the growth of good bacteria and so suppress the bad ones along with the associated inflammation. IBS patients need to be careful of the amount of soluble fiber they consume. The reason for this is that, while the good colon bacteria thrive on these fibers and produce health benefits, other gas-forming bacteria may generate excessive but harmless gas and subsequent bloating. Thus, soluble plant fibers or a dietary prebiotic supplement should be taken in small initial doses and then gradually increased to tolerance. Fiber and Colon Polyps/Cancer Colon cancer is a major health problem. This disease is most common in Western cultures. It is not seen very often in rural cultures where the diet is mostly plant based. Usually, colon cancer starts out as a colon polyp, a benign mushroom-shaped growth. In time it grows, and in some people it becomes cancerous. Colon cancer is usually always curable if polyps are removed when found or if surgery is performed at an early stage. It is now known that people can inherit the risk of developing colon cancer, but diet is important, too. As noted, there is a very low rate of colon cancer in residents of countries where grains are unprocessed and retain their fiber. It seems that in the [place] world, cancer-containing agents (carcinogens) remain in contact with the colon wall for a longer time and in higher concentrations. So, a large bulky stool may act to dilute these carcinogens by moving them through the bowel more quickly. Less carcinogenic exposure to the colon may mean fewer colon polyps and less cancer. A very current review of the entire world?s literature on the effect of fiber on colon polyps and cancer prevention has shown rather clearly that for every 10 grams of fiber added to the diet, there is a 10% reduction in incidence of colon cancer. So the recommended 30 gram fiber diet would result in a 30% less chance of getting these tumors. There are also substances produced in the colon by the good bacteria that seem to retard certain pre-cancer factors from developing. They are called short- chain fatty acids (SCFA). See above for description of SCFAs. A high fiber diet increases these substances. So, the combination of dietary fiber and the production of short-chain fatty acids have a clear health benefit. Fiber and Diverticulosis Prolonged, vigorous contraction of the colon over a long period of time may result in diverticulosis. This increased pressure causes small and, eventually, larger ballooning pockets to form. These pockets by themselves cause no problem. However, sometimes they become infected (diverticulitis) or even break open (perforate) causing infection or inflammation within the abdomen (peritonitis). A high fiber diet increases the bulk in the stool and thereby reduces the pressure within the colon. By so doing, the formation of pockets may be reduced or possibly even stopped. In the past, many physicians were fearful that seeds as in tomatoes, nuts or berries were harmful and could get inside these pockets and rattle around, causing damage. We now know that this has never been the case and that these foods contain lots of fiber and are actually beneficial for diverticulosis patients. Certain bulking agents such as psyllium are traditional types of bulk producing supplements. Psyllium is a soluble fiber. Combining it with insoluble fiber as in wheat bran or corn bran (no gluten) can enhance this bulking effect even more. A product containing a prebiotic, psyllium and wheat bran is probably a very good combination for bowel regularity. Prebiotin Regularity/Diverticulosis is one such product. Activity:: No lifting over past 20 pounds or strenuous activity x24 hours Diet:: Small light meals x24 hours Discharge Orders Discharge Orders: Discharge Order (Routine); Ordered 02/28/20 Ordered By: Barbara Louis DS: Diagnosis Discharge Diagnosis (1) Diverticula of colon: Status: Acute
--- NOTE | 2020-02-28 10:42 | W.COLOREPORT ---
Date of service: 02/28/20 Time of Service: 10:42 Colonoscopy Report Date of procedure: 02/28/20 Pre-op diagnosis general: CRC screen Post-op diagnosis procedure note: other Surgeon: Barbara Louis Anesthesia proc note operative: GETA Estimated blood loss (mL): 0 Pathology: none sent Complications: None Disposition: same day Prep: Miralax/Dulcolax Retraction Time: 10 mins Procedure Description: After informed consent was obtained the patient was taken to the procedure room and placed in a left decubitous position. Monitors were applied and a time out was done. The patients name, date of , procedure, allergies to medications and metal in their body was reviewed. The patient was then sedated. Once sedated and comfortable a rectal exam was done. External exam was normal. Internal exam revealed a normal sphincter tone and no palpable masses. The scope was then introduced and retrofelexed. No internal hemorrhoids were identified. The scope was then advanced to the cecum w/mild difficulty- colon is torteous. The TI and appendiceal orifice were identified. The prep was good. The scope was then slowly retracted over 10 minutes back into the rectum. Polyps were removed: none. She has moderate diverticular disease confined to the sigmoid colon. There is no signs of active bleeding or infection. There are no AVMs. The mucosa is pink and healthy. The scope was removed and the patient was woken up and taken back to Same day surgery in stable condition. The patient tolerated the procedure well and there were no immediate complications. Follow up: The patient does not require another colonoscopy, unless they develop changes in bowel habits or other new gastrointestinal complaints.
[2020-02-28 11:21] VITALS: BP 96/50; PULSE 69; RESP 16; TEMP 36.4; O2SAT 96
== END 2020-02-28 12:00 | disposition home or self-care (01) ==
PROVIDERS: PCP Nurse Practitioner Family; Visit Provider Surgery
PROC: 0DJD8ZZ Inspection of Lower Intestinal Tract, Via Natural or Artificial Opening Endoscopic (ICD-10-PCS; CPT 45378; principal; 2020-02-28 09:45)
DX: Z12.11 Encounter for screening for malignant neoplasm of colon (principal); Q43.8 Other specified congenital malformations of intestine; K57.30 Diverticulosis of large intestine without perforation or abscess without bleeding; K21.9 Gastro-esophageal reflux disease without esophagitis
CPT/HCPCS: G0121; J2001; J2405

== ENCOUNTER 2020-03-16 09:39 | Day surgery (SDC) | payer MEDICARE, SELFPAY ==
[2020-03-16 09:50] VITALS: BP 128/70; PULSE 70; RESP 22; TEMP 35.9; O2SAT 94
[2020-03-16] MEDS: Tropicam./Phenyleph. (1/2.5%) 5 ML BTL OS ×3 (10:08→10:16)
[2020-03-16] MEDS: Tetracaine 0.5% 4 ML BTL OS (11:29)
[2020-03-16] MEDS: Lidocaine 2% Jelly 6 ML SYR (11:30)
[2020-03-16] MEDS: Povidone-Iodine Ophth 30 ML BTL (11:30)
[2020-03-16] MEDS: Lidocaine 1% Pres-Free 5 ML VIAL (11:37)
[2020-03-16] MEDS: Duovisc Viscoelastic System EACH 1 EACH (11:44)
--- NOTE | 2020-03-16 12:01 | W.PM.DSUDISC ---
Discharge Plan Disposition Patient Disposition: HOME Condition: Good Discharge Details Attending Provider: Elias Reddy Primary Care Provider: Yanely Shankar Home Meds and New Rx's Prescriptions: No Action losartan 100 mg tablet 100 mg PO DAILY RF: 0 rosuvastatin 10 mg tablet 10 mg PO HS RF: 0 magnesium chloride 70 mg tablet,delayed release (DR/EC) 140 mg PO DAILY RF: 0 metformin 500 mg tablet 500 mg PO DAILY RF: 0 metronidazole 0.75 % gel 1 applic topical BID RF: 0 omeprazole [Prilosec] 20 MG capsule,delayed release(DR/EC) 20 mg PO DAILY RF: 0 diazepam 2 MG tablet 1 mg PO Q6H PRN PRNQty: 0 RF: 0 acetaminophen 500 mg tablet 1,000 mg PO Q8H PRN (Reason: pain) Qty: 90 RF: 3 Discharge Instructions Stand Alone Forms: Post-op Topical Cataract, Dirk Sterlingey (DSU) Discharge Orders Discharge Orders: Discharge Order (Routine); Ordered 03/16/20 Ordered By: Elias Reddy DS: Diagnosis Discharge Diagnosis (1) Cortical cataract of left eye: Status: Resolved (2) Nuclear sclerotic cataract of left eye: Status: Resolved
--- NOTE | 2020-03-16 12:02 | ROE_ITS ---
Date of service: 03/16/20 Time of Service: 12:03 Operative Note Operative Note DATE OF PROCEDURE: 03/16/20 PRE-OP DIAGNOSIS: Nuclear/cortical cataract, left eye POST-OP DIAGNOSIS: same PROCEDURE: Cataract extraction using phacoemulsification with intraocular lens implant, left eye SURGEON: Elias Reddy ANESTHESIA: MAC and local (sub-tenon's anesthetic infiltration) PATHOLOGY: none sent COMPLICATIONS: None Patient was transported to: same day Patient's condition: stable Implants: Á[employer]el [employer] / [employer] Tecnis ZCB00 Indications: Progressive decreased vision due to cataract, left eye Procedure Description: CATARACT SURGERY OPERATIVE REPORT PREOPERATIVE DIAGNOSIS: Nuclear/cortical cataract, left eye POSTOPERATIVE DIAGNOSIS: Same OPERATION: Cataract extraction using phacoemulsification with posterior chamber intraocular lens implant, left eye. IOL: IOL Roll Plugger Machine Operator/Model: [employer] Vision / YOSSI Tecnis ZCB00 IOL Power: + 23.0 diopters IOL Serial Number: [id number] Optic Diameter: 6.0mm Haptic/Overall Diameter: 13.0mm PHACO INFO: Moses Activity[employer] Vision System with OZil and Active Fluidics Cumulative Dispersed Energy (CDE): 17.28 seconds SURGEON: Elias Reddy MD, [place] ANESTHESIA: Monitored Anesthesia Care (MAC), with local sub-tenon's anesthetic infiltration COMPLICATIONS: None SPECIMENS: None INDICATIONS FOR PROCEDURE: The patient is a 69-year-old lady with history of diminished visual acuity in both eyes secondary to the development of bilateral nuclear and cortical cataract. The option of cataract surgery was offered to the patient and she wished to proceed. PROCEDURE: The correct surgical eye was identified and marked as the left eye and the pupil was dilated in the preoperative area using mydriatics and cycloplegics. The dilated pupil size was 6.5 mm. Oral sedation was administered in the form of an Imprimis MKO Melt (midazolam 3mg/ketamine 25mg/ondansetron 2mg). The patient was brought to the operating room where cardiopulmonary monitoring was instituted and surgical time-out was performed, confirming the correct operative eye and IOL power. Topical anesthesia was administered and ophthalmic povidone-iodine 5% was instilled into the conjunctival fornices. Lidocaine gel was applied to the cornea and the brodie-ocular area was prepped with Betadine 10% solution and draped in the usual sterile fashion for intraocular surgery, including an aperture drape. Steri-Strips were used to isolate the lashes and lid margins. A lid speculum was placed between the lids of the operative eye and the Lety- Mynor operating microscope was maneuvered into position. Hermes scissors were then used to make a conjunctival buttonhole approximately 6mm posterior to the limbus in the inferonasal quadrant. Blunt dissection was carried out to expose bare sclera, and a blunt-tipped sub-tenon?s anesthesia cannula was introduced and passed posteriorly along the globe where non- preserved plain lidocaine was injected into posterior sub-Tenon?s space. A sideport knife was used to make a paracentesis port superior/superiortemporally. Intraocular phenylephrine/lidocaine was injected into the anterior chamber. The anterior chamber was then filled with viscoelastic. A 2.4mm keratome knife was used to create a half-thickness groove at the limbus and then to construct a three-plane near-clear corneal tunnel extending 2.0mm into clear cornea in the temporal position. . A flap was raised on the anterior capsule and capsulorhexis forceps were used to complete a continuous curvilinear capsulorhexis of 5.5 mm. Balanced salt solution was then used to perform cortical cleaving hydrodissection and nuclear hydrodelineation until the lens could be freely rotated within the capsular bag. The lens nucleus was then disassembled and removed within the capsular bag and iris plane using phacoemulsification. Residual cortical material was removed using the 45-degree angled silicone I/A tip with 0.3mm port. The posterior capsule was carefully polished to remove as much residual lens epithelial cells as safely possible. The capsular bag was then inflated and the anterior chamber deepened with viscoelastic. The lens implant described above was inserted into the capsular bag using the YOSSI [place] Injector. A Kuglen hook was used to dial the IOL into position. Residual viscoelastic was then removed first from posterior to the IOL, then from the anterior chamber using the I/A handpiece. The lens implant was noted to center nicely within the capsular bag. The incisions were stromally hydrated, and the anterior chamber was reformed using BSS. Then 0.5cc of moxifloxacin 1.0mg/ml were injected into the capsular bag and anterior chamber. The incisions were checked with a Weck spear and found to be secure. Several drops of ophthalmic povidone-iodine 5% were then applied to the eye followed by two drops of Imprimis combination prednisolone/moxifloxacin/nepafenac solution. The drapes were removed and a clear plastic protective eye shield was placed over the eye. The patient was then returned to Same Day Surgery in stable condition.
[2020-03-16 12:25] VITALS: BP 135/64; PULSE 64; RESP 22; TEMP 36.4; O2SAT 94
== END 2020-03-16 12:35 | disposition home or self-care (01) ==
PROVIDERS: PCP Nurse Practitioner Family; Visit Provider Ophthalmology
PROC: (CPT 66984; principal; 2020-03-16 12:30)
DX: H25.12 Age-related nuclear cataract, left eye; K21.9 Gastro-esophageal reflux disease without esophagitis; E11.9 Type 2 diabetes mellitus without complications; Z79.84 Long term (current) use of oral hypoglycemic drugs; H25.012 Cortical age-related cataract, left eye
CPT/HCPCS: 66984; V2632

== ENCOUNTER 2020-05-12 12:48 | Outpatient (REF) | payer MEDICARE, SELFPAY ==
[2020-05-12 13:21] LABS: HCT 47.7 % (36.0-46.0); HGB 15.6 g/dL (11.2-15.7); MCH 33.8 pg (27.0-33.0); MCHC 32.7 % (32.0-36.0); MCV 103.2 fL (80-95); MPV 9.8 fL (8.0-11.0); Platelet Count 312 10^3/uL (130-400); RBC 4.62 10^6/uL (3.93-5.22); RDW 12.7 % (11.7-14.6); RDW-SD 48.5 fL
[2020-05-12 14:06] LABS: BUN 19 mg/dL (7-18); CREATININE 0.8 mg/dL (0.55-1.02); Calcium 8.9 mg/dL (8.5-10.1); Chloride 104 mmol/L (98-107); Glucose 101 mg/dL (74-106); Magnesium 1.9 mg/dL (1.8-2.4); Potassium 4.2 mmol/L (3.5-5.1); Sodium 143 mmol/L (136-145)
== END 2020-05-12 12:49 | disposition home or self-care (01) ==
LOC: NCHCN 12:48
PROVIDERS: PCP Nurse Practitioner Family; Visit Provider Nurse Practitioner Family
DX: E11.9 Type 2 diabetes mellitus without complications (principal); E83.42 Hypomagnesemia
CPT/HCPCS: 80048; 85027; 83735

== ENCOUNTER 2020-08-20 10:41 | Outpatient (CLI) | payer MEDICARE, SELFPAY ==
--- NOTE | 2020-08-20 08:45 | DI.RAD_ITS ---
Exam(s) XR KNEE RT 2V AP,LAT EXAM: XR KNEE RT 2V AP,LAT CLINICAL HISTORY: ANNUAL F/U R TKA. TECHNIQUE: 2D digital imaging was performed. COMPARISON: CR XR KNEE RT 1V from 08/09/2019 FINDINGS: Compared to study of July 2019 there is stable position alignment of the components of right knee pro sthesis. No fracture or loosening evident. No radiographic evidence of osteomyelitis. IMPRESSION: DATA REPOSITORY: RADIATION DOSE DELIVERED:
== END 2020-08-20 10:42 | disposition home or self-care (01) ==
LOC: DIORS 10:41
PROVIDERS: PCP Nurse Practitioner Family; Referring Provider Nurse Practitioner Family; Visit Provider Student in an Organized Health Care Education/Training Program
DX: Z47.1 Aftercare following joint replacement surgery (principal); Z96.651 Presence of right artificial knee joint; M17.11 Unilateral primary osteoarthritis, right knee
CPT/HCPCS: 99213; 73560

== ENCOUNTER 2020-09-21 01:27 | Outpatient (CLI) | payer MEDICARE, SELFPAY ==
--- NOTE | 2020-09-21 | DI.MAMMO_ITS ---
Exam(s) MAMMO SCREENING EXAM: MAMMO SCREENING CLINICAL HISTORY: SCREENING, Z12.31. TECHNIQUE: Bilateral full field digital CC and MLO mammographic images were obtained with 3D tomosyn thesis and utilizing computer aided detection (CAD). COMPARISON: Prior mammograms dating back to 2011, the most recent being August 2018. FINDINGS: There are no new spiculated masses nor malignant appearing microcalcification groups. There is no significant architectural distortion nor skin thickening-retraction. IMPRESSION: No radiographic evidence of malignancy. BI-RADS Category 1 - Negative Breast Density - Category A - Almost entirely fatty Breast density Category C or D implies that the patient has dense breast tissue. Dense breast tissue can make it harder to find cancer on a mammogram. Dense breast tissue is also associated with an incr eased risk of breast cancer. This information about the result of the mammogram report was provided to the patient to raise their awareness. Use this report when you speak with the patient about their risks for breast cancer, which includes their family history. At that time, you may recommend additional screening tests (Ultrasoun d or MRI) as these tests may add significant information. A negative radiographic report should not delay biopsy if a dominant or clinically suspicious mass is present. Up to ten percent of cancers are not identified on mammography. A negative report may reinforce clinical impression. Adenosis and dense breasts may obscure an underlying neoplasm. False positive reports average 6 to 10%. Patient will receive a letter notifying them of these results.
== END 2020-09-21 01:47 ==
PROVIDERS: PCP Nurse Practitioner Family; Visit Provider Nurse Practitioner Family
DX: Z12.31 Encounter for screening mammogram for malignant neoplasm of breast (principal)
CPT/HCPCS: 77063; 77067

== ENCOUNTER 2021-06-16 18:30 | Outpatient (REF) | payer MEDICARE, SELFPAY ==
[2021-06-16 20:40] LABS: HCT 47.5 % (36.0-46.0); HGB 15.7 g/dL (11.2-15.7); MCH 34.5 pg (27.0-33.0); MCHC 33.1 % (32.0-36.0); MCV 104.4 fL (80-95); MPV 9.9 fL (8.0-11.0); Platelet Count 322 10^3/uL (130-400); RBC 4.55 10^6/uL (3.93-5.22); RDW 12.8 % (11.7-14.6); RDW-SD 49.9 fL; WBC 9.49 10^3/uL (4.4-10.8)
[2021-06-16 20:58] LABS: ALT 35 U/L (14-59); AST 18 U/L (15-37); Alkaline Phosphatase 87 U/L (46-116); Anion Gap 7.5 mmol/L (3-11); BUN 19 mg/dL (7-18); Bilirubin, Total 0.4 mg/dL (0.2-1.0); CO2 29.5 mmol/L (21.0-32.0); CREATININE 0.9 mg/dL (0.55-1.02); Calcium 9.3 mg/dL (8.5-10.1); Chloride 102 mmol/L (98-107); Glucose 96 mg/dL (74-106); Potassium 3.6 mmol/L (3.5-5.1); Sodium 139 mmol/L (136-145); Total Protein 6.6 g/dL (6.4-8.2)
== END 2021-06-16 18:31 | disposition home or self-care (01) ==
LOC: NCHCN 18:30
PROVIDERS: PCP Nurse Practitioner Family; Visit Provider Nurse Practitioner Family
DX: I10 Essential (primary) hypertension (principal); E11.9 Type 2 diabetes mellitus without complications; E78.5 Hyperlipidemia, unspecified
CPT/HCPCS: 80053; 85027

== ENCOUNTER 2021-12-10 06:49 | Day surgery (SDC) | payer MEDICARE, SELFPAY ==
[2021-12-10] MEDS: Tropicam./Phenyleph. (1/2.5%) 5 ML BTL OD ×3 (07:05→07:20)
--- NOTE | 2021-12-10 07:09 | W.ANESPRE ---
General Info Date of Service Date Performed: 12/10/21 Height: 5 ft 4 in Weight: 125.191 kg Body Mass Index (BMI): 47.3 Surgical Procedure: Operation Date: 12/10/21 08:40 Proposed Procedure Side Surgeon p Cataract Extraction with IOL Implant Right Elias Reddy MD Meds Allergies and Home Medications Allergies Allergy/AdvReac Type Severity Reaction Status Date / Time shellfish derived AdvReac Intermediate VOMITING Verified 12/10/21 07:17 lisinopril AdvReac Mild cough Verified 12/10/21 07:17 pravastatin AdvReac Mild leg cramps Verified 12/10/21 07:17 latex AdvReac Skin Rash Verified 12/10/21 07:17 tegaderm-film Allergy Mild Skin Rash Uncoded 12/09/21 11:39 Home Medication Medication Instructions Recorded omeprazole 20 mg capsule,delayed 20 mg PO DAILY 07/21/12 release (Prilosec) losartan 100 mg tablet 100 mg PO DAILY 09/26/18 magnesium chloride 70 mg 400 mg PO DAILY 09/26/18 (magnesium chloride) tablet,delayed release rosuvastatin 10 mg tablet 10 mg PO HS 09/26/18 metformin 500 mg tablet 500 mg PO DAILY 01/02/20 metronidazole 0.75 % topical gel 1 applic topical BID 01/02/20 hydrochlorothiazide 12.5 mg tablet 12.5 mg PO DAILY 08/20/20 amlodipine 2.5 mg tablet 1 tab PO DAILY 12/09/21 diazepam 2 mg tablet 1 tab PO DIRECTED 12/09/21 magnesium oxide 400 mg (241.3 mg 1 tab PO DAILY 12/09/21 magnesium) tablet Current Visit Medications: Current Medications Generic Name Dose Route Start Last Admin Trade Name Freq PRN Reason Stop Dose Admin Acetaminophen 1,000 mg 12/10/21 06:00 Acetaminophen 500 Mg Tab PO Q4H PRN PRN Miscellaneous Medication 0 ml 12/10/21 06:00 Prednisolone 1%, Moxifloxacin 0.5%, Nepafenac 0.1% 5ml Btl OD DIRECTED JALEN Miscellaneous Medication 0 ml 12/10/21 06:00 12/10/21 07:05 Tropicam./Phenyleph. (1/2.5%) 5 Ml Btl OD 1 drp DIRECTED JALEN Administration Tetracaine HCl 0 ml 12/10/21 06:00 Tetracaine 0.5% 4 Ml Btl OD DIRECTED [facility] Active Problems Active Problems: Problem Status Onset Code Cortical cataract of right eye H26.9 Nuclear sclerotic cataract of right eye H25.11 Nuclear sclerotic cataract of left eye H25.12 Cortical cataract of left eye H26.9 Diverticula of colon K57.30 Degenerative joint disease of right knee M17.11 Trochanteric bursitis, left hip M70.62 Arthrofibrosis of total knee replacement T84.82XA Status post total right knee replacement 07/24/19 Z96.651 Febrile neutropenia 07/21/12 D70.9 Acute cholecystitis 08/10/12 K81.0 Cholelithiasis without obstruction K80.20 Anxiety F41.9 Malignant lymphoma 06/23/12 C85.90 Morbid obesity E66.01 Benign hypertension I10 Medical History Medical History (Updated 12/09/21 @ 19:24 by Elias Reddy MD) Diabetes Per pt. as of 09/01 pt. was taken off Metformin, recent A1C 5.6 GERD (gastroesophageal reflux disease) History of lymphoma Treated with Chemotherapy Completed treatment in 2012 Hyperlipidemia Hypertension Port-A-Cath in place Removed 2012. Surgical History Surgical History (Updated 12/10/21 @ 07:17 by Hiren Alacntara) History of colonoscopy (~02/28/20) Hx of cholecystectomy Tobacco Smoking/Tobacco Use Status: Never Alcohol Alcohol Intake: current Alcohol intake frequency: holidays/special occasions only Alcohol type: wine Substance Use Substance use: Never Substance use type: does not use Vital Signs and Lab Results Vital Signs Most Recent Vital Signs in EMR: Temp Pulse Resp BP Pulse Ox 36.7 C 84 16 171/64 H 96 12/10/21 07:11 12/10/21 07:11 12/10/21 07:11 12/10/21 07:11 12/10/21 07:11 Point of Care Results Point of Care Results: Finger Stick Blood Glucose 152 12/10/21 07:03 Lab Results Blood Type / Crossmatch: No Data to Display Complete Blood Count: No Data to Display Complete Metabolic Panel: No Data to Display Liver Function Panel: No Data to Display Coagulation Panel: No Data to Display Cardiac Panel: No Data to Display Arterial Blood Gas: No Data to Display Venous Blood Gas: No Data to Display Pancreas Panel: No Data to Display Thyroid Panel: No Data to Display Infectious Disease: No Data to Display Blood Cultures: No Data to Display Toxicology Panel: No Data to Display Anesthesia Assessment and Plan Anesthesia History Personal History: No History of Anesthesia Complications Family History: No Family History of Anesthesia Complications Exercise Tolerance Exercise Tolerance: Metabolic Equivalents>4 Pertinent Negatives Pertinent Negatives: No Symptoms of GERD Cardiac & Pulmonary Exam Cardiac Exam: Normal S1/S2 Heart Sounds Pulmonary Exam: Clear Bilateral Breath Sounds Implantable Cardiac Device Does patient have a Pacemaker or an ICD?: No Airway Exam Known Difficult Airway: No Mallampati Class: 2 Mouth Opening: Normal (> 3cm) Thyromental Distance: Greater than 3 cm Neck Range of Motion: Full ROM Neck Circumference: Normal Teeth Condition: Normal Dentition ASA Classification ASA Score: ASA 3 Emergency Case?: No NPO Status NPO Status: NPO Clears >2 hours, Solids >8 hours Anesthesia Plan Resuscitation Status: Full Code Anesthesia Technique: MAC Anesthesia Airway Planned: Natural Airway Monitors Used: Standard Monitors
[2021-12-10 07:11] VITALS: BP 171/64; PULSE 84; RESP 16; TEMP 36.7; O2SAT 96; BMI 47.3
[2021-12-10] MEDS: Duovisc Viscoelastic System EACH 1 EACH (07:46)
[2021-12-10] MEDS: Balanced Salt Soln.-PLUS 500 ML BAG (07:46)
[2021-12-10] MEDS: Lidocaine 2% Jelly 6 ML SYR (07:47)
[2021-12-10] MEDS: Povidone-Iodine Ophth 30 ML BTL (07:49)
[2021-12-10] MEDS: Tetracaine 0.5% 4 ML BTL OD (07:49)
[2021-12-10 08:04] VITALS: BP 119/58; PULSE 72; RESP 16; TEMP 36.5; O2SAT 95
--- NOTE | 2021-12-10 08:06 | W.PM.DSUDISC ---
Date of service: 12/10/21 Time of Service: 08:06 Discharge Plan Disposition Patient Disposition: HOME Condition: Good Discharge Details Attending Provider: Elias Reddy Primary Care Provider: Yanely Shankar Home Meds and New Rx's Prescriptions: No Action losartan 100 mg tablet 100 mg PO DAILY rosuvastatin 10 mg tablet 10 mg PO HS magnesium chloride 70 mg tablet,delayed release (DR/EC) 400 mg PO DAILY hydrochlorothiazide 12.5 mg tablet 12.5 mg PO DAILY metformin 500 mg tablet 500 mg PO DAILY metronidazole 0.75 % gel 1 applic topical BID omeprazole [Prilosec] 20 MG capsule,delayed release(DR/EC) 20 mg PO DAILY amlodipine 2.5 mg tablet 1 tab PO DAILY Label Comments: TAKE ONE TABLET BY MOUTH EVERY DAY magnesium oxide 400 mg (241.3 mg magnesium) tablet 1 tab PO DAILY Label Comments: TAKE ONE TABLET BY MOUTH EVERY DAY diazepam 2 mg tablet 1 tab PO DIRECTED Label Comments: TAKE ONE TABLET BY MOUTH EVERY DAY NEEDED +MAX 2 TABLETS PER DAY+ Discharge Instructions Stand Alone Forms: Post-op Topical Cataract, Dirk Arias (DSU) Discharge Orders Discharge Orders: Discharge Order (Routine); Ordered 12/10/21 Ordered By: Elias Reddy DS: Diagnosis Discharge Diagnosis (1) Nuclear sclerotic cataract of right eye: Status: Resolved (2) Cortical cataract of right eye: Status: Resolved
--- NOTE | 2021-12-10 08:07 | W.PM.OP ---
Date of service: 12/10/21 Time of Service: 08:07 Operative Note Operative Note DATE OF PROCEDURE: 12/10/21 PRE-OP DIAGNOSIS: Nuclear/cortical cataract, right eye POST-OP DIAGNOSIS: same PROCEDURE: Cataract extraction using phacoemulsification with intraocular lens implant, right eye SURGEON: Elias Reddy ANESTHESIA TYPE: Local By Surgeon and MAC Refer to Anesthesia Record ESTIMATED BLOOD LOSS: 0 PATHOLOGY: none sent COMPLICATIONS: None Patient was transported to: same day Patient's condition: stable Implants: [employer]ngel/YOSSI Tecnis [id number] Indications: Progressive visual loss due to cataract, right eye Procedure Description: CATARACT SURGERY OPERATIVE REPORT PREOPERATIVE DIAGNOSIS: 1. Nuclear/cortical cataract, right eye POSTOPERATIVE DIAGNOSIS: Same OPERATION: 1. Cataract extraction using phacoemulsification with posterior chamber intraocular lens implant, right eye. IOL: IOL Shot Hole Shooter/Model: [employer] Ángel / YOSSI Tecnis [id number] IOL Power: + 23.5 diopters IOL Serial Number: [id number] Optic Diameter: 6.0mm Haptic/Overall Diameter: 13.0mm PHACO INFO: Moses Incipienturion Vision System with OZil and Active Fluidics Cumulative Dispersed Energy (CDE): 10.96 seconds SURGEON: Elias Reddy MD, [place] ANESTHESIA: Monitored Anesthesia Care (MAC), with local sub-tenon's anesthetic infiltration COMPLICATIONS: None SPECIMENS: None INDICATIONS FOR PROCEDURE: The patient is a 71-year-old lady with history of diminished visual acuity in her right eye secondary to the development of nuclear and cortical cataract. She has previously undergone cataract surgery in her left eye in 2020 and is doing well postoperatively there. She now desires cataract surgery in her right eye and attempt to improve and maximize her vision. PROCEDURE: The correct surgical eye was identified and marked as the right eye and the pupil was dilated in the preoperative area using mydriatics and cycloplegics. The dilated pupil size was 7.0 mm. Oral sedation was administered in the form of an Imprimis MKO Melt (midazolam 3mg/ketamine 25mg/ondansetron 2mg). The patient was brought to the operating room where cardiopulmonary monitoring was instituted and surgical time-out was performed, confirming the correct operative eye and IOL power. Topical anesthesia was administered and ophthalmic povidone-iodine 5% was instilled into the conjunctival fornices. Lidocaine gel was applied to the cornea and the brodie-ocular area was prepped with Betadine 10% solution and draped in the usual sterile fashion for intraocular surgery, including an aperture drape. A Tegaderm transparent film dressing was cut in half and used to cover the lashes and lid margins. Care was taken to sequester the lashes and lid margins under the Tegaderm dressing. A lid speculum was placed between the lids of the operative eye and the Moses LuxOR Revalia operating microscope was maneuvered into position. Hermes scissors were then used to make a conjunctival buttonhole approximately 6mm posterior to the limbus in the inferonasal quadrant. Blunt dissection was carried out to expose bare sclera, and a blunt-tipped sub-tenon?s anesthesia cannula was introduced and passed posteriorly along the globe where non-preserved plain lidocaine was injected into posterior sub-Tenon?s space. A sideport knife was used to make a paracentesis port inferotemporally. Intraocular phenylephrine/lidocaine was injected into the anterior chamber. The anterior chamber was filled with viscoelastic. A keratome knife was used to construct a 2-plane near-clear corneal tunnel extending 2.0mm into clear cornea superiortemporally. A flap was raised on the anterior capsule and capsulorhexis forceps were used to complete a continuous curvilinear capsulorhexis of 5.5 mm. Balanced salt solution was then used to perform cortical cleaving hydrodissection and nuclear hydrodelineation until the lens could be freely rotated within the capsular bag. The lens nucleus was then disassembled and removed within the capsular bag and iris plane using phacoemulsification. Residual cortical material was removed using the I/A handpiece. The posterior capsule was carefully polished to remove as much residual lens epithelial cells as safely possible. The capsular bag was then inflated and the anterior chamber deepened with viscoelastic. The lens implant described above was inserted into the capsular bag using the YOSSI [employer] Injector. A Kuglen hook was used to dial the IOL into position. Residual viscoelastic was then removed first from posterior to the IOL, then from the anterior chamber using the I/A handpiece. The lens implant was noted to center nicely within the capsular bag. The incisions were stromally hydrated, and the anterior chamber was reformed using BSS. Then 0.5cc of moxifloxacin 1.0mg/ml were injected into the capsular bag and anterior chamber. The incisions were checked with a Weck spear and found to be secure. Several drops of ophthalmic povidone-iodine 5% were then applied to the eye followed by two drops of Imprimis combination prednisolone/moxifloxacin/nepafenac solution. The drapes were removed and a clear plastic protective eye shield was placed over the eye. The patient was then returned to Same Day Surgery in stable condition.
--- NOTE | 2021-12-10 08:23 | W.ANESPOSTOP ---
Postoperative Evaluation Date, Time and Location Date Performed: 12/10/21 Time Performed: 08:15 Patient Location: Day Surgery Unit Vital Signs Most Recent Imported Vital Signs: Most Recent Vital Signs Temp Pulse Resp BP Pulse Ox 36.5 C 72 16 119/58 L 95 12/10/21 08:04 12/10/21 08:04 12/10/21 08:04 12/10/21 08:04 12/10/21 08:04 Pain Score Most Recent Pain Score: Most Recent Pain Score Pain Level 0 12/10/21 08:04 Assessment Mental Status: Awake (Alert & Oriented to Patient Baseline) Airway and Respiratory Function: Patent airway with normal (patient baseline) respiratory exam Cardiovascular Function: Hemodynamically Stable Hydration Status: Adequately Hydrated Nausea & Vomiting: No Nausea or Vomiting Pain: Pt. Denies Any Pain Peripheral Nerve Block: Patient did not receive a nerve block
[2021-12-10 08:30] VITALS: BP 131/68; PULSE 72; RESP 16; TEMP 36.5; O2SAT 96
== END 2021-12-10 08:40 | disposition home or self-care (01) ==
LOC: SUR 06:49
PROVIDERS: PCP Nurse Practitioner Family; Visit Provider Ophthalmology
PROC: (CPT 66984; principal; 2021-12-10 08:30)
DX: H25.11 Age-related nuclear cataract, right eye (principal); E11.9 Type 2 diabetes mellitus without complications; I10 Essential (primary) hypertension
CPT/HCPCS: 66984; V2632

== ENCOUNTER 2022-05-11 02:00 | Outpatient (CLI) | payer MEDICARE, SELFPAY ==
--- NOTE | 2022-05-11 10:15 | DI.US_ITS ---
Exam(s) US PELVIS TRANSVAGINAL EXAM: US PELVIS TRANSVAGINAL CLINICAL HISTORY: POSTMENOPAUSAL BLEEDING, N95.0. TECHNIQUE: Transabdominal and transvaginal pelvic ultrasound was performed using standard protocol. COMPARISON: CT CHEST ABD PELVIS WITH CONTRAST from 01/08/2015 FINDINGS: UTERUS: Position: Anteverted. Size: 12 cm long by 4 cm AP x 4.1 cm transverse cm Endometrium: 0.7 cm. This is thickened in this postmenopausal patient. Myometrium: Unremarkable. Cervix: There is a complex 7.8 x 5.8 x 7.2 cm cystic structure centered in the cervix. There is mobi le debris seen internally. OVARIES: The left ovary was not visualized transabdominally or transvaginally. No suspicious left ad nexal mass is seen. Right: 1.6 x 1.3 x 1.9 cm Cyst or mass: No suspicious cystic or solid masses. CUL-DE-SAC: Free fluid: None. Other: None. IMPRESSION: 1. Complex 7.8 x 5.8 x 7.2 cm cystic lesion centered at the cervix. An MRI of the pelvis without and with contrast is recommended for further evaluation. This may represent a cervical or uterine mass. Neoplasm cannot be excluded. 2. Thickened endometrium in this postmenopausal patient of 7 mm. 3. Gynecologic consult is recommended for further evaluation. DATA REPOSITORY:
== END 2022-05-11 02:20 ==
LOC: DI 02:01
PROVIDERS: PCP Nurse Practitioner Family; Visit Provider Family Medicine
DX: N95.0 Postmenopausal bleeding (principal); N88.8 Other specified noninflammatory disorders of cervix uteri; R93.89 Abnormal findings on diagnostic imaging of other specified body structures
CPT/HCPCS: 76830; 76856

== ENCOUNTER 2022-06-03 00:50 | Outpatient (CLI) | payer MEDICARE, SELFPAY ==
--- NOTE | 2022-06-03 | DI.MRI_ITS ---
Exam(s) MR PELVIS WO/W EXAM: MR PELVIS WO/W CLINICAL HISTORY: PELVIC MASS R19.00 POSTMENOPAUSAL BLEEDING N95.0 SEEN ON US TECHNIQUE: Multiplanar multisequence MRI of Pelvis was performed. CONTRAST MATERIAL: IV Contrast: 20 mL of Dotarem contrast administered. COMPARISON: US US PELVIS TRANSVAGINAL from 05/11/2022 FINDINGS: Bones: There is no fracture or contusion pattern. No significant joint effusion or labral injury is present. No bone marrow edema is seen. Some spurring noted at the pubic symphysis. SI joints are unr emarkable. Degenerative disc changes and facet degenerative changes are noted in the lower lumbar sp ine. Degenerative changes noted in both hips, left greater than right. Uterus: 2.2 centimeter posterior myometrial fibroid. Endometrial thickening without visible focal ma ss, 6 millimeters. No abnormal enhancement. Cervix: 4.7 by 4.4 centimeter cyst in the cervix with layering debris. No septation or mural nodular ity. No evidence of abnormal enhancement. It appears located centrally within the cervix and is expa nsile. It is high on signal on T1 weighted images consistent with hemorrhagic or proteinaceous debris . Findings could represent accumulation of hemorrhage end or other proteinaceous material within the cervical region due to upper vaginal stricture. A large nabothian cyst arm is less likely. Vagina: Unremarkable. Ovaries: Normal in size and appearance. No cysts or mass is visible. Sigmoid diverticulosis noted. Bladder unremarkable. IMPRESSION: Distension of the cervix proteinaceous and/or hemorrhagic material could be related to vaginal stenos is or could represent a benign cystic lesion. No features to suggest malignancy. The endometrium appears thickened which shows nofocal abnormality or abnormal enhancement. DATA REPOSITORY:
[2022-06-03 08:03] LABS: HGB 15.1 g/dL (11.2-15.7); MCH 35.3 pg (27.0-33.0); MCHC 34.3 % (32.0-36.0); MCV 103 fL (80-95); Platelet Count 306 10^3/uL (130-400); RBC 4.28 10^6/uL (3.93-5.22); RDW 13.2 % (11.7-14.6); RDW-SD 50.3 fL; WBC 6.92 10^3/uL (4.4-10.8)
[2022-06-03 08:13] LABS: Anion Gap 7.8 mmol/L (3-11); BUN 23 mg/dL (7-18); CO2 30.2 mmol/L (21.0-32.0); CREATININE 0.9 mg/dL (0.55-1.02); Chloride 103 mmol/L (98-107); Estimated GFR 67.92 (mL/min/1.73m2); Potassium 3.3 mmol/L (3.5-5.1); Sodium 141 mmol/L (136-145)
[2022-06-03] MEDS: Gadoterate meglumine 20 ML VIAL IVP (08:59)
[2022-06-03] MEDS: Normal Saline Flush 10 ML SYR IVP (09:00)
== END 2022-06-03 01:10 ==
LOC: DI 00:51
PROVIDERS: Obstetrics & Gynecology; PCP Nurse Practitioner Family; Visit Provider Family Medicine
DX: Z01.818 Encounter for other preprocedural examination (principal); N95.0 Postmenopausal bleeding
CPT/HCPCS: 72197; 80051; 84520; 85027; 86850; 86900; 86901; 82565

== ENCOUNTER 2022-06-07 18:36 | Outpatient (REF) | payer MEDICARE, SELFPAY ==
[2022-06-07 14:50] LABS: ALT 31 U/L (14-59); AST 16 U/L (15-37)
== END 2022-06-07 18:37 | disposition home or self-care (01) ==
LOC: NCHCN 18:36
PROVIDERS: PCP Nurse Practitioner Family; Visit Provider Nurse Practitioner Family
DX: E78.5 Hyperlipidemia, unspecified (principal)
CPT/HCPCS: 84450; 84460

== ENCOUNTER 2022-06-08 07:03 | Day surgery (SDC) | payer MEDICARE, SELFPAY ==
[2022-06-08] VITALS (7 sets, daily range): BP systolic 108–170; BP diastolic 58–70; PULSE 56–75; RESP 16–18; TEMP 36.1–36.6; O2SAT 93–98; BMI 47.0
[2022-06-08] MEDS: Lactated Ringers 1,000 ML 125 ML IV (07:55)
--- NOTE | 2022-06-08 08:19 | ANES.PREOP_ITS ---
General Info Date of Service Date Performed: 06/08/22 Height: 5 ft 4 in Weight: 124.284 kg Body Mass Index (BMI): 47.0 Surgical Procedure: Operation Date: 06/08/22 09:25 Proposed Procedure Side Surgeon p Dilation & Curettage with Hysteroscopy Maria Eugenia Neal DO Meds Allergies and Home Medications Allergies Allergy/AdvReac Type Severity Reaction Status Date / Time shellfish derived AdvReac Intermediate VOMITING Verified 06/08/22 07:32 lisinopril AdvReac Mild cough Verified 06/08/22 07:32 pravastatin AdvReac Mild leg cramps Verified 06/08/22 07:32 latex AdvReac Skin Rash Verified 06/08/22 07:32 tegaderm-film Allergy Mild Skin Rash Uncoded 06/08/22 07:32 Home Medication Medication Instructions Recorded omeprazole 20 mg capsule,delayed 20 mg PO DAILY 07/21/12 release (Prilosec) losartan 100 mg tablet 100 mg PO DAILY 09/26/18 magnesium chloride 70 mg 400 mg PO DAILY 09/26/18 (magnesium chloride) tablet,delayed release rosuvastatin 10 mg tablet 10 mg PO HS 09/26/18 metformin 500 mg tablet 500 mg PO DAILY 01/02/20 metronidazole 0.75 % topical gel 1 applic topical BID 01/02/20 hydrochlorothiazide 12.5 mg tablet 12.5 mg PO DAILY 08/20/20 amlodipine 2.5 mg tablet 1 tab PO DAILY 12/09/21 diazepam 2 mg tablet 1 tab PO DIRECTED 12/09/21 magnesium oxide 400 mg (241.3 mg 1 tab PO DAILY 12/09/21 magnesium) tablet Current Visit Medications: Current Medications Generic Name Dose Route Start Last Admin Trade Name Freq PRN Reason Stop Dose Admin Ringer's Solution 1,000 mls @ 125 mls/hr 06/08/22 06:00 06/08/22 07:55 IV 06/19/22 23:59 125 mls/hr INFUSION JALEN Administration IV Miscellaneous Supplies 1 each 06/08/22 06:00 Iv Access IV 06/19/22 23:59 DIRECTED JALEN Sodium Chloride 0 ml 06/08/22 06:00 Normal Saline Flush 10 Ml Syr IV 06/19/22 23:59 PRN PRN Sodium Chloride 0 ml 06/08/22 06:00 Normal Saline 10 Ml Vial IJ 06/19/22 23:59 DIRECTED PRN Sterile Water 0 ml 06/08/22 06:00 Water,Injection,Sterile 10 Ml Vial IJ 06/19/22 23:59 DIRECTED PRN PFSH Active Problems Active Problems: Problem Status Onset Code Benign hypertension I10 Morbid obesity E66.01 Malignant lymphoma 06/23/12 C85.90 Anxiety F41.9 Cholelithiasis without obstruction K80.20 Febrile neutropenia 07/21/12 D70.9 Acute cholecystitis 08/10/12 K81.0 Degenerative joint disease of right knee M17.11 Trochanteric bursitis, left hip M70.62 Status post total right knee replacement 07/24/19 Z96.651 Arthrofibrosis of total knee replacement T84.82XA Diverticula of colon K57.30 Cortical cataract of left eye H26.9 Nuclear sclerotic cataract of left eye H25.12 Nuclear sclerotic cataract of right eye H25.11 Cortical cataract of right eye H26.9 Postmenopausal bleeding N95.0 Endometrial thickening on ultrasound R93.89 Medical History Medical History (Updated 06/08/22 @ 08:09 by Barbi Overton, RN) Cataract Bilateral cataract repairs with Dr. Reddy Diabetes Per pt. as of 09/01 pt. was taken off Metformin, recent A1C 5.6 GERD (gastroesophageal reflux disease) History of lymphoma Treated with Chemotherapy Completed treatment in 2012 Hyperlipidemia Hypertension Port-A-Cath in place Removed 2012. Surgical History Surgical History History of colonoscopy (~02/28/20) Hx of cholecystectomy Tobacco Smoking/Tobacco Use Status: Never Alcohol Alcohol Intake: current Alcohol intake frequency: holidays/special occasions only Alcohol type: wine Substance Use Substance use: Never Substance use type: does not use Prental History History 2 Para 2 Hx # Term Pregnancies 2 Multiple births Hx # Pregnancies Ectopic pregnancies AB induced Hx Number of Living Children 2 AB spontaneous Vital Signs and Lab Results Vital Signs Most Recent Vital Signs in EMR: Most Recent Vital Signs Temp Pulse Resp BP Pulse Ox 36.6 C 67 16 165/62 H 96 06/08/22 07:03 06/08/22 07:03 06/08/22 07:03 06/08/22 07:03 06/08/22 07:03 Point of Care Results Point of Care Results: Finger Stick Blood Glucose 133 06/08/22 07:16 Lab Results Blood Type / Crossmatch: Patient ABO/Rh A Positive 06/03/22 Antibody Screen NEGATIVE 06/03/22 Complete Blood Count: White Blood Count 6.92 10^3/uL (4.4-10.8) 06/03/22 07:53 Red Blood Count 4.28 10^6/uL (3.93-5.22) 06/03/22 07:53 Hemoglobin 15.1 g/dL (11.2-15.7) 06/03/22 07:53 Hematocrit 44.0 % (36.0-46.0) 06/03/22 07:53 Platelet Count 306 10^3/uL (130-400) 06/03/22 07:53 Complete Metabolic Panel: Sodium 141 mmol/L (136-145) 06/03/22 07:53 Potassium 3.3 mmol/L (3.5-5.1) L 06/03/22 07:53 Chloride 103 mmol/L (98-107) 06/03/22 07:53 Carbon Dioxide 30.2 mmol/L (21.0-32.0) 06/03/22 07:53 BUN 23 mg/dL (7-18) H 06/03/22 07:53 Creatinine 0.9 mg/dL (0.55-1.02) 06/03/22 07:53 Est GFR (CKD-EPI 2020) 67.92 (mL/min/1.73m2) 06/03/22 07:53 Liver Function Panel: Alanine Aminotransferase (ALT/SGPT) 31 U/L (14-59) 06/07/22 10: 45 Aspartate Amino Transf (AST/SGOT) 16 U/L (15-37) 06/07/22 10:45 Coagulation Panel: No Data to Display Cardiac Panel: No Data to Display Arterial Blood Gas: No Data to Display Venous Blood Gas: No Data to Display Pancreas Panel: No Data to Display Thyroid Panel: No Data to Display Infectious Disease: No Data to Display Blood Cultures: No Data to Display Toxicology Panel: No Data to Display Anesthesia Assessment and Plan Anesthesia History Personal History: No History of Anesthesia Complications Family History: No Family History of Anesthesia Complications Exercise Tolerance Exercise Tolerance: Metabolic Equivalents>4 Pertinent Negatives Pertinent Negatives: No Symptoms of GERD, No Major Cardiovascular Symptoms or Complaints and No Major Pulmonary Symptoms or Complaints Cardiac & Pulmonary Exam Cardiac Exam: Normal S1/S2 Heart Sounds Pulmonary Exam: Clear Bilateral Breath Sounds Implantable Cardiac Device Does patient have a Pacemaker or an ICD?: No Airway Exam Known Difficult Airway: No Mallampati Class: 2 Mouth Opening: Normal (> 3cm) Thyromental Distance: Less than 3 cm Neck Range of Motion: Full ROM Neck Circumference: Normal Teeth Condition: Normal Dentition ASA Classification ASA Score: ASA 2 Emergency Case?: No NPO Status NPO Status: NPO Clears >2 hours, Solids >8 hours Anesthesia Plan Resuscitation Status: Full Code Anesthesia Technique: General Anesthesia Airway Planned: Natural Airway Monitors Used: Standard Monitors
[2022-06-08] MEDS: Droperidol 5 MG/2 ML VIAL 0.625 MG IVP (08:46)
[2022-06-08] MEDS: Midazolam 2 MG/2 ML VIAL IVP (08:48)
--- NOTE | 2022-06-08 11:24 | ENDO_PTH ---
PATIENT: Mary Ann More LOC: [facility] U#:[id number] AGE/SX: 71/F ROOM: RE06/08/[address]: Maria Eugenia Neal DO : 1950 BED: DIS: 06/08/2022 SPEC #: [id number] RECD: 06/08/22 12:55 STATUS: KATARZYNA REQ #: [id number] ABY: 06/08/22 11:[address]: Maria Eugenia Neal DEPT: Surgical Specimen RECD BY: Bere Castro ENTERED: 06/08/22 12:55 SP TYPE: Endo OTHR DR: Yanely Shankar Tissues: 1 - ENDOCERVICAL BX/CURRETTE 2 - ENDOMETRIUM BX/CURRETTE Procedures: GROSS AND MICRO LEVEL 4 Comments: [id number]
--- NOTE | 2022-06-08 11:42 | ROE_ITS ---
Date of service: 06/08/22 Time of Service: 11:42 Operative Note Operative Note DATE OF PROCEDURE: 06/08/22 PRE-OP DIAGNOSIS: Postmenopausal bleeding, thickened endometrium, cervical stenosis POST-OP DIAGNOSIS: same (With hematometra) PROCEDURE: Dilation and curettage, hysteroscopy SURGEON: Maria Eugenia Neal ANESTHESIA TYPE: General:No Airway Refer to Anesthesia Record ESTIMATED BLOOD LOSS: 10 PATHOLOGY: other (1. Endocervical curettage 2. Endometrial curettage) Patient was transported to: PACU Patient's condition: stable Indications: Postmenopausal bleeding, thickened endometrium, cervical stenosis prohibiting endometrial sampling in the office Findings: Cervical stenosis, when released moderate him endometrium. Hysteroscopy confirmed thickened endometrium. Scant endocervical and endometrial sampling Procedure Description: After full informed consent was obtained, patient was taken the operating suite with an IV running. She is placed in the dorsal supine position and general anesthesia administered. She was then placed in a modified dorsolithotomy position in [facility] stirps and prepped and draped in the usual sterile fashion. Exam under anesthesia revealed a uterus that is midline and mobile though somewhat limited due to body habitus. Speculum was inserted into the vaginal vault and a single-tooth tenaculum used to grasp the anterior lip of the cervix. With gentle dilation, the cervical os dilated. With initial placement of dilator, moderate old blood consistent with hematometra was released. Once the cervical os was dilated a 4 mm hysteroscope was passed into the endometrial cavity. The endometrial cavity was identified, and plush endometrium visualized. Hysteroscope was then completed and a fractional curettage was performed with endocervical curettage, followed by endometrial curettage. Tenaculum was removed and puncture sites were hemostatic. Speculum was removed from the vaginal vault and the patient awoke from anesthesia with ease. She was taken to the recovery room in stable condition. Complications: None apparent Fluids: Crystalloid per anesthesia +20 cc of fluid deficit from hysteroscope. ] Findings: 1. Cervical stenosis 2. Hematometra 3. [place] endometrium Complications: None apparent Pathology: 1. Endocervical curettage 2. Endometrial curettage
--- NOTE | 2022-06-08 12:26 | W.ANESPOSTOP ---
Postoperative Evaluation Date, Time and Location Date Performed: 06/08/22 Time Performed: 12:26 Patient Location: Day Surgery Unit Vital Signs Most Recent Imported Vital Signs: Most Recent Vital Signs Temp Pulse Resp BP Pulse Ox 36.1 C L 56 L 16 131/58 L 95 06/08/22 12:15 06/08/22 12:15 06/08/22 12:15 06/08/22 12:15 06/08/22 12:15 Pain Score Most Recent Pain Score: Most Recent Pain Score Pain Level 0 06/08/22 12:15 Assessment Mental Status: Awake (Alert & Oriented to Patient Baseline) Airway and Respiratory Function: Patent airway with normal (patient baseline) respiratory exam Cardiovascular Function: Hemodynamically Stable Hydration Status: Adequately Hydrated Nausea & Vomiting: No Nausea or Vomiting Pain: Pt. Denies Any Pain Peripheral Nerve Block: Patient did not receive a nerve block
== END 2022-06-08 12:55 | disposition home or self-care (01) ==
PROVIDERS: PCP Nurse Practitioner Family; Visit Provider Obstetrics & Gynecology
PROC: 0UDB8ZZ Extraction of Endometrium, Via Natural or Artificial Opening Endoscopic (ICD-10-PCS; CPT 58558; principal; 2022-06-08 09:15)
DX: N95.0 Postmenopausal bleeding (principal); R93.89 Abnormal findings on diagnostic imaging of other specified body structures; N85.7 Hematometra
CPT/HCPCS: 58558; 88305; J1100; J1790; J2250; J2405; J2704

== ENCOUNTER 2022-08-09 02:32 | Outpatient (CLI) | payer MEDICARE, SELFPAY ==
--- NOTE | 2022-08-09 | DI.MAMMO_ITS ---
Exam(s) MAMMO SCREENING EXAM: MAMMO SCREENING CLINICAL HISTORY: SCREENING, Z12.39 TECHNIQUE: Bilateral full field digital CC and MLO mammographic images were obtained with 3D tomosyn thesis and utilizing computer aided detection (CAD). COMPARISON: Available for comparison. FINDINGS: Masses/Architectural Distortion: None seen. Microcalcifications: No suspicious pleomorphic-type are seen. Skin Thickening/Nipple Retraction: None. IMPRESSION: 1. No significant interval change with no specific features of malignancy noted. 2. Unless there is more urgent need, screening mammography is recommended, as per [employer] guidelines. BI-RADS Category 1 - Negative Breast Density - Category A - Almost entirely fatty Breast density category C or D implies that the patient has dense breast tissue. Dense breast tissue is very common and is not abnormal but dense breast tissue can make it harder to find cancer on a ma mmogram. Also, dense breast tissue may increase their breast cancer risk. This information about the result of the mammogram report was provided to the patient to raise their awareness. Use this report when you speak with the patient about their risks for breast cancer, which includes their family hist ory. At that time, you may recommend for more screening tests (Ultrasound or MRI) as they might be us eful based on their risk. A negative radiographic report should not delay biopsy if a dominant or clinically suspicious mass is present. Up to ten percent of cancers are not identified on mammography. A negative report may reinforce clinical impression. Adenosis and dense breasts may obscure an underlying neoplasm. False positive reports average 6 to 10%. Patient will receive a letter notifying them of these results.
== END 2022-08-09 02:52 ==
LOC: DI 02:32
PROVIDERS: PCP Nurse Practitioner Family; Visit Provider Nurse Practitioner Family
DX: Z12.31 Encounter for screening mammogram for malignant neoplasm of breast (principal)
CPT/HCPCS: 77063; 77067

== ENCOUNTER → 2022-10-19 00:56 | Outpatient (CLI) | payer MEDICARE, SELFPAY ==
--- NOTE | 2022-10-19 07:45 | DI.US_ITS ---
Exam(s) US PELVIS TRANSVAGINAL EXAM: US PELVIS TRANSVAGINAL CLINICAL HISTORY: check stripe, ENDOMETRIAL THICKENING ON US, R93.89 TECHNIQUE: Transabdominal and transvaginal imaging was performed using standard protocol. COMPARISON: US US PELVIS TRANSVAGINAL from 05/11/2022 MR MR PELVIS WO/W from 06/03/2022 FINDINGS: UTERUS: Anteverted. 7.2 x 4.4 x 4 5 cm Endometrium: 5 mm Myometrium: Unremarkable. Fibroid visible on pelvic MRI not discretely visible on current ultrasound. Cervix: Unremarkable. Previously noted cystic lesion has been excised. OVARIES: Right: Cyst or mass: None. Left: Left ovary not visualized. CUL-DE-SAC: Free fluid: None. IMPRESSION: 1. Mild endometrial thickening, 5 millimeters. Left ovary not visualized. Right ovary appears normal. DATA REPOSITORY:
== END ==
PROVIDERS: PCP Nurse Practitioner Family; Visit Provider Obstetrics & Gynecology
DX: R93.89 Abnormal findings on diagnostic imaging of other specified body structures (principal)
CPT/HCPCS: 76830; 76856

== ENCOUNTER → 2023-04-24 04:10 | Outpatient (CLI) | payer MEDICARE, SELFPAY ==
--- NOTE | 2023-04-24 08:30 | DI.US_ITS ---
Exam(s) US PELVIS TRANSVAGINAL EXAM: US PELVIS TRANSVAGINAL CLINICAL HISTORY: Recheck endometrial stripe, POSTMENOPAUSAL BLEEDING, TECHNIQUE: Transabdominal and transvaginal imaging was performed using standard protocol. COMPARISON: US US PELVIS TRANSVAGINAL from 10/19/2022 FINDINGS: UTERUS: Anteverted. 7.1 x 3.5 x 4.2 cm Endometrium: 5-6 mm , mildly thickened. No focal abnormality visible. Myometrium: 2.6 centimeter posterior fibroid. Cervix: Unremarkable. OVARIES: Right: Cyst or mass: None. Left: Left ovary not visualized. DOPPLER: Color: Symmetric and uniform flow to both ovaries. No hyperemia. CUL-DE-SAC: Free fluid: None. IMPRESSION: Posterior uterine fibroid. Thickening of the endometrium, 5-6 millimeters. Left ovary not visualized. Right ovary unremarkable. DATA REPOSITORY:
== END ==
PROVIDERS: PCP Nurse Practitioner Family; Visit Provider Obstetrics & Gynecology
DX: N95.0 Postmenopausal bleeding (principal); R93.89 Abnormal findings on diagnostic imaging of other specified body structures; D25.9 Leiomyoma of uterus, unspecified
CPT/HCPCS: 76830; 76856

== ENCOUNTER 2023-05-22 10:06 | Outpatient (REF) | payer MEDICARE, SELFPAY ==
--- NOTE | 2023-05-22 09:00 | ENDOMET_PTH ---
PATIENT: Mary Ann More LOC: [facility], [place] U#:[id number] AGE/SX: 72/F ROOM: RE05/22/[address]: Maria Eugenia Neal DO : 1950 BED: DIS: 05/22/2023 SPEC #: [id number] RECD: 05/22/23 12:54 STATUS: SOUHermelinda REQ #: [id number] ABY: 05/22/23 09:[address]: Maria Eugenia Neal DEPT: Surgical Specimen RECD BY: Bere Castro ENTERED: 05/22/23 12:54 SP TYPE: Endomet OTHR DR: Yanely Shankar Tissues: 1 - ENDOMETRIUM BX/TORRI Procedures: GROSS AND MICRO LEVEL 4 Comments: [id number]
== END 2023-05-22 10:07 | disposition home or self-care (01) ==
LOC: LBN 10:06
PROVIDERS: PCP Nurse Practitioner Family; Visit Provider Obstetrics & Gynecology
DX: N95.0 Postmenopausal bleeding (principal)
CPT/HCPCS: 88305

== ENCOUNTER 2023-06-07 14:04 | Outpatient (REF) | payer MEDICARE, SELFPAY ==
[2023-06-07 14:46] LABS: Abs Immature Grans 0.02 10^3/uL (0.0-0.06); Absolute Basophil Count 0.05 10^3/uL (0.0-0.2); Absolute Eosinophil Count 0.12 10^3/uL (0.0-0.7); Absolute Lymphocyte Count 1.79 10^3/uL (1.2-3.4); Absolute Monocyte Count 0.57 10^3/uL (0.1-0.8); Absolute Neutrophil Count 3.76 10^3/uL (1.2-6.7); Basophils % 0.8; Eosinophils % 1.9; HCT 46.7 % (36.0-46.0); HGB 15.6 g/dL (11.2-15.7); Immature Grans % 0.3; Lymphocytes % 28.4; MCH 34.4 pg (27.0-33.0); MCHC 33.4 % (32.0-36.0); MCV 103 fL (80-95); MPV 9.7 fL (8.0-11.0); Neutrophils % 59.6; Platelet Count 332 10^3/uL (130-400); RBC 4.54 10^6/uL (3.93-5.22); RDW 13.2 % (11.7-14.6); RDW-SD 50.6 fL; WBC 6.31 10^3/uL (4.4-10.8)
[2023-06-07 15:57] LABS: ALT 31 U/L (14-59); AST 15 U/L (15-37); Albumin 3.9 g/dL (3.4-5.0); Alkaline Phosphatase 73 U/L (46-116); Anion Gap 10.7 mmol/L (3-11); BUN 19 mg/dL (7-18); Bilirubin, Total 0.5 mg/dL (0.2-1.0); CO2 30.3 mmol/L (21.0-32.0); CREATININE 0.9 mg/dL (0.55-1.02); Calcium 9.5 mg/dL (8.5-10.1); Calculated LDL 55 mg/dL (<100); Chloride 103 mmol/L (98-107); Cholesterol 142 mg/dL (<200); Glucose 129 mg/dL (74-106); HDL Cholesterol 63 mg/dL (40-60); Magnesium 1.9 mg/dL (1.8-2.4); Potassium 3.8 mmol/L (3.5-5.1); Sodium 144 mmol/L (136-145); Total Protein 6.7 g/dL (6.4-8.2); Triglyceride 121 mg/dL (<150)
== END 2023-06-07 14:05 | disposition home or self-care (01) ==
LOC: NCHCN 14:04
PROVIDERS: PCP Nurse Practitioner Family; Visit Provider Nurse Practitioner Family
DX: E78.5 Hyperlipidemia, unspecified (principal); I10 Essential (primary) hypertension; E83.42 Hypomagnesemia
CPT/HCPCS: 80053; 80061; 83735; 85025

== ENCOUNTER 2024-06-12 17:06 | Outpatient (REF) | payer MEDICARE, SELFPAY ==
[2024-06-12 15:42] LABS: Abs Immature Grans 0.02 10^3/uL (0.0-0.06); Absolute Basophil Count 0.06 10^3/uL (0.0-0.2); Absolute Monocyte Count 0.78 10^3/uL (0.1-0.8); Absolute Neutrophil Count 4.34 10^3/uL (1.2-6.7); Basophils % 0.8 %; Eosinophils % 1.4 %; HCT 46.3 % (36.0-46.0); HGB 15.6 g/dL (11.2-15.7); Immature Grans % 0.3 %; Lymphocytes % 28.4 %; MCH 35.3 pg (27.0-33.0); MCHC 33.7 % (32.0-36.0); MCV 105 fL (80-95); MPV 9.8 fL (8.0-11.0); Monocytes % 10.5 %; Neutrophils % 58.6 %; Platelet Count 310 10^3/uL (130-400); RBC 4.42 10^6/uL (3.93-5.22); RDW 12.8 % (11.7-14.6); RDW-SD 49.7 fL
[2024-06-12 16:36] LABS: ALT 33 U/L (14-59); AST 19 U/L (15-37); Albumin 3.9 g/dL (3.4-5.0); Alkaline Phosphatase 79 U/L (46-116); Anion Gap 8.1 mmol/L (3-11); BUN 18 mg/dL (7-18); Bilirubin, Total 0.5 mg/dL (0.2-1.0); CO2 32.9 mmol/L (21.0-32.0); CREATININE 0.9 mg/dL (0.55-1.02); Calcium 9.9 mg/dL (8.5-10.1); Chloride 104 mmol/L (98-107); Estimated GFR 67.08 (mL/min/1.73m2); Glucose 118 mg/dL (74-106); Magnesium 1.9 mg/dL (1.8-2.4); Potassium 4.6 mmol/L (3.5-5.1); Sodium 145 mmol/L (136-145); Total Protein 6.8 g/dL (6.4-8.2)
[2024-06-12 17:06] LABS: Calculated LDL 47 mg/dL (<100); Cholesterol 139 mg/dL (<200); HDL Cholesterol 64 mg/dL (>or=50); Triglyceride 140 mg/dL (<150)
== END 2024-06-12 17:07 | disposition home or self-care (01) ==
LOC: NCHCN 17:06
PROVIDERS: PCP Nurse Practitioner Family; Visit Provider Nurse Practitioner Family
DX: E78.5 Hyperlipidemia, unspecified (principal); Z85.72 Personal history of non-Hodgkin lymphomas; I10 Essential (primary) hypertension; E83.42 Hypomagnesemia
CPT/HCPCS: 80053; 80061; 83735; 85025

== ENCOUNTER 2024-07-19 00:19 | Outpatient (CLI) | payer MEDICARE, SELFPAY ==
--- NOTE | 2024-07-19 | DI.DEXA_ITS ---
Exam(s) XR DEXA BONE DENSITY W/WO VERITO EXAM: XR DEXA BONE DENSITY W/WO VERITO CLINICAL HISTORY: Z78.0 Asymptomatic menopausal state, postmenopausal TECHNIQUE: Routine DEXA evaluation of the lumbar spine, hip, or forearm. COMPARISON: Prior DEXA scan August 2017 FINDINGS: Performed on a [employer] unit. Lateral image: No compression fracture evident. Lumbar Spine total T-score: 1.1 which is normal range. Prior reading in 2018 was 0.8 Hip total T-score:1.7 which is normal range. Prior 2018 reading was 1.9. Independent reading at the level of the femoral neck yields T-score of 0.7 which is also normal rang e. Forearm total T-score: 0.6 which is normal range. Prior reading in 2018 was 0.2. IMPRESSION: Bone mineral density measures in the normal range. Fracture risk is low. Note: Any spine fracture indicates 5x risk for subsequent spine fracture and 2x risk for subsequent h ip fracture. World Health Organization criteria for BMD interpretation classify patients: Normal...... T- Score at or above -1.0 Osteopenic... T- Score between -1.0 and -2.5 Osteoporosis... T-Score at or below -2.5
== END 2024-07-19 00:39 ==
LOC: DI 00:19
PROVIDERS: PCP Nurse Practitioner Family; Visit Provider Nurse Practitioner Family
DX: Z78.0 Asymptomatic menopausal state (principal); Z13.820 Encounter for screening for osteoporosis
CPT/HCPCS: 77080

== ENCOUNTER 2024-08-14 00:21 | Outpatient (CLI) | payer MEDICARE, SELFPAY ==
--- NOTE | 2024-08-14 09:32 | DI.MAMMO_ITS ---
Exam(s) MAMMO SCREENING EXAM: MAMMO SCREENING CLINICAL HISTORY: mammo screening Z12.31 TECHNIQUE: Mammograms were interpreted according to the usual protocol including computer analysis with CAD system, tomosynthesis and C-view imaging. COMPARISON: 2015 through 2022 FINDINGS: The breasts are composed of mainly fatty density , Breast Density category A. No suspicious masses or suspicious microcalcifications are seen. No skin thickening or abnormal axillary lymph nodes are seen. There has been no significant change from prior exams. IMPRESSION: BI-RADS Category 1, Negative mammogram Yearly screening mammography is recommended. Breast Density- Category A - The breast are almost entirely fatty. Breast density Category C or D implies that the patient has dense breast tissue. Dense breast tissue can make it harder to find cancer on a mammogram. Dense breast tissue is also associated with an increased risk of breast cancer. This information about the result of the mammogram report was provided to the patient to raise their awareness. Use this report when you speak with the patient about their risks for breast cancer, which includes their family history. At that time, you may recommend additional screening tests (Ultrasound or MRI) as these tests may add significant information. A negative radiographic report should not delay biopsy if a dominant or clinically suspicious mass is present. Up to ten percent of cancers are not identified on mammography. A negative report may reinforce clinical impression. Adenosis and dense breasts may obscure an underlying neoplasm. False positive reports average 6 to 10%. Patient will receive a letter notifying them of these results.
== END 2024-08-14 00:41 ==
LOC: DI 00:21
PROVIDERS: PCP Nurse Practitioner Family; Visit Provider Nurse Practitioner Family
DX: Z12.31 Encounter for screening mammogram for malignant neoplasm of breast (principal); R92.313 Mammographic fatty tissue density, bilateral breasts
CPT/HCPCS: 77063; 77067

== ENCOUNTER 2024-12-13 13:01 | Outpatient (REF) | payer MEDICARE, SELFPAY ==
[2024-12-13 16:43] LABS: COMMENT (LAB VIEW ONLY) 44.82 mg/dL; Microalb ug/mg Crea 9.1 ug/mg Cr
== END 2024-12-13 13:02 | disposition home or self-care (01) ==
LOC: NCHCN 13:01
PROVIDERS: PCP Nurse Practitioner Family; Visit Provider Nurse Practitioner Family
DX: E11.9 Type 2 diabetes mellitus without complications (principal)
CPT/HCPCS: 82043; 82570